=== PATIENT | male | born 1980 | race Caucasian/White ===

== ENCOUNTER 2024-03-11 15:39 | Outpatient (AMB) | payer OTHER, SELFPAY ==
--- NOTE | 2024-03-11 15:41 | A.OFFPC_ITS ---
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 Required: No Allergies ibuprofen Allergy (Severe, Verified 03/11/24 16:16) Abdominal Pain Medication List - Last Reconciled 03/11/24 by Toni Duke MD diazepam 10 mg PO BID PRN duloxetine 20 mg PO DAILY escitalopram oxalate 20 mg PO DAILY methadone 56 mg PO DAILY quetiapine 25 mg PO BEDTIME Tobacco use date assessed: 03/11/24 Dental Screening Dental Screen Date: 03/11/24 Did you have a dental visit in the last 12 months?: No Did you have a dental problem in the last 6 months where you did not have access to dental care?: No Was dental information given to patient?: Yes 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, 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 Details Patient comes in today for his annual physical examination and to establish care - is a new patient to the practice States that he moved here from [place] back in September 2023 Relates that he used to take Lisinopril 10 mg (was on it for about a year) but since he moved here to [facility], his previous doctor in [place] would n ot continue to refill his Rx and he has not been taking Lisinopril for a few months now He is still seeing his psychiatrist from [place] by telehealth visits and is being maintained on his current Rx although he is being weaned down and off his Duloxetine States that he was diagnosed with anxiety disorder, PTSD and depression and he also has a Hx of substance abuse and is currently on Methadone at 56 mg daily dose through the [facility] program in [place] Patient states that he currently feels okay He relates (+) on and off headaches at times lately but denies any dizziness He denies any chest pains, no SOB No nausea/vomiting, no abdominal pain No change in bowel habits noted He denies any acute urinary symptoms States that he will need to start looking for a local psychiatrist who will take over his psych Rx management at some point and he needs to get a referral from his PCP He would also like to get a referral to see a skein straightener if possible to help him with his diet and weight loss States that he had a colonoscopy done about 2 to 3 years ago in [place] - recalls that he was experiencing some GI issues then that were mostly related to his substance abuse Was advised that his colonoscopy came out normal and he should start his screening/repeat colonoscopy as recommended, which now starts at 43 yrs of age based on current guidelines [facility] Medical History (Updated 03/11/24 @ 19:32 by Toni Duke MD) History of substance abuse Essential hypertension Obesity (BMI 30-39.9) Depression Post traumatic stress disorder (PTSD) Anxiety Surgical History (Updated 03/11/24 @ 16:33 by Toni Duke MD) Hx of colonoscopy Family History (Updated 03/11/24 @ 16:38 by Toni Duke MD) Father Diabetes mellitus Hyperlipidemia CAD (coronary artery disease) Mother DVT (deep venous thrombosis) Depression Sister Depression Social History Housing: House Patient Tobacco Use Status: Former Tobacco user Quit Date: 10/17/2023 e-Cigarette/Vaping Use: Never Used service: No Current occupational status: employed and unemployed Cognitive needs: No Hearing needs: No Vision needs: No Questionnaire PHQ-9 Over the last 2 weeks, how often have you been bothered by any of the following problems? 1. Little interest or pleasure in doing things: not at all 2. Feeling down, depressed, or hopeless: more than half the days 3. Trouble falling or staying asleep, or sleeping too much: not at all 4. Feeling tired or having little energy: not at all 5. Poor appetite or overeating: not at all 6. Feeling bad about yourself - or that you are a failure or have let yourself or your family down: several days 7. Trouble concentrating on things, such as reading the newspaper or watching television: not at all 8. Moving or speaking so slowly that other people could have noticed. Or the opposite - being so fidgety or restless that you have been moving around a lot more than usual: not at all 9. Thoughts that you would be better off or of hurting yourself in some way: not at all Total score: 3 Depression Screening Interpretation: Positive Depression Screening Follow-up: Existing condition and In treatment Depression Screening Done: Yes 24919 - PHQ-9 Billing: Yes Source: Developed by Drs. Titi Diaz, Ivonne Ramos, Marlon Turcios and colleagues, with an educational david from [employer] Thrive Questionnaire Date Thrive assessed: 03/11/24 I am a: Patient What is your living situation today?: I have a steady place to live Within the past 12 months, did the food you bought not last and you didn't have the money to get more?: Never true Within the past 12 months, did you worry whether your food would run out before you got money to buy more?: Never true Do you have trouble paying for medicines?: No Do you have trouble getting transportation to medical appointments?: No Do you have trouble paying your heating and electricity bill?: No Do you have trouble taking care of your child, family member or friend?: No Do you have trouble with day-to-day activities such as bathing, preparing meals, shopping, managing finances, etc.?: No Are you currently unemployed and looking for a job?: No Are you interested in more education?: No Please select the resources that you would like help with: None Currently or been in a relationship where the following occur: no concerns reported THRIVE Score: 0 AUDIT C Alcohol Use Questionnaire (AUDIT-C) 1. How often do you have a drink containing alcohol?: Never 2. How many drinks containing alcohol do you have on a typical day when you are drinking?: 1 or 2 (0) 3. How often do you have six or more drinks on one occasion?: Never Total Score: 0 Score Reviewed/Action Taken: Yes PRO-7 AMB Questionnaire PRO-7 Date PRO - 7 assessed: 03/11/24 Feeling nervous, anxious, or on edge: 1 = Several days Not being able to stop or control worryin = Not at all Worrying too much about different things: 0 = Not at all Trouble relaxin = Not at all Being so restless that it is hard to sit still: 0 = Not at all Becoming easily annoyed or irritable: 0 = Not at all Feeling afraid as if something awful might happen: 0 = Not at all Total PRO-7 score (0-4 normal; 5-9 mild; 10-14 moderate; 15-21 severe): 1 Source: Developed by Drs. Titi Diaz, Ivonne Ramos, Marlon Turcios and colleagues, with an educational david from [employer] PRO-7 Assessment Billing PRO-7 Assessment Tool: PRO-7 Assessment 77945 Review of Systems Const Denies chills, Denies fatigue, Denies fever(s), Denies headache(s), Denies malaise and Denies weakness Eyes Denies blurry vision, Denies change in vision, Denies irritation and Denies itchy eyes ENT Denies dysphagia, Denies dizziness, Denies otalgia, Denies headache(s), Denies nasal congestion, Denies neck pain, Denies odynophagia and Denies sore throat Card Denies chest pain, Denies rapid heart rate, Denies irregular heart rhythm, Denies palpitations and Denies dyspnea Resp Denies chest congestion, Denies cough, Denies dyspnea and Denies wheezing GI Denies abdominal pain, Denies bloating, Denies constipation, Denies dysphagia, Denies heartburn, Denies diarrhea, Denies nausea, Denies odynophagia and Denies vomiting Denies hematuria, Denies difficulty urinating, Denies dysuria, Denies urinary frequency and Denies urinary urgency Musc Denies back pain, Denies arthralgias, Denies joint swelling, Denies muscle weakness and Denies neck pain Skin/Breast Denies change in pigmentation, Denies lesions, Denies rash and Denies unusual bruising Neuro Denies dizziness, Denies headache(s), Denies paresthesias and Denies weakness Endo Denies fatigue and Denies palpitations Aller/Immun Denies itchy eyes and Denies wheezing Physical exam (Primary Care) Vital Signs: Last Vital Signs Pulse 91 03/11/24 15:42 BP 172/100 H 03/11/24 16:31 Pulse Ox 94 03/11/24 15:42 Oxygen Delivery Method Room Air 03/11/24 15:42 BMI result Body Mass Index 35.3 Tobacco/Smoking Status: Tobacco use Status Tobacco use date assessed 03/11/24 03/11/24 15:42 Patient Tobacco Use Status Former Tobacco user 03/11/24 15:56 e-Cigarette/Vaping Use Never Used 03/11/24 15:42 PHQ-9: PHQ-9 Score PHQ-9: Total score 3 03/11/24 19:00 Depression Screening Interpretation: Positive Depression Screening Follow-up: Existing condition and In treatment Thrive Assessment: Date of Thrive Assessment Date Thrive assessed 03/11/24 03/11/24 15:42 Currently or been in a relationship where the following occur: no concerns reported Const General: no acute distress, alert and awake Orientation/consciousness: patient oriented x3 HENMT Head: Yes normocephalic and Yes atraumatic Ears: external ears normal, TM's normal bilaterally and EAC's normal General nose exam: No nasal discharge present Face and sinus: Yes normal facial exam and Yes sinuses nontender Teeth and gingiva: dentition normal Throat: Yes posterior oropharynx normal and Yes tonsils normal (no TP congestion) Eyes Eyelids: Yes eyelids normal Conjunctivae: conjunctivae normal Pupils: Equal, round and reactive pupils present EOM: EOMs intact bilaterally Neck Neck: Yes no lymphadenopathy and Yes supple Thyroid: Thyroid normal Resp Auscultation: clear to auscultation bilaterally, no rales and no wheezes Cardio Rate: regular rate Rhythm: regular rhythm Heart sounds: no murmurs GI Palpation (GI): Soft to palpation, nontender and No hepatosplenomegaly present Auscultation: normal bowel sounds General: Yes no CVA tenderness Back/Spine/Pelvis Back: no CVA tenderness Thoracic/Lumbar Spine: thoracic and lumbar spine normal to inspection Skin Lesions: no lesions Rashes: no rashes Neuro General: patient oriented x3, moves all extremities, no focal motor deficits and CN's II-XI intact bilaterally Cranial nerves: Yes Equal, round and reactive pupils present Cognition (Neuro): normal cognition Gait exam (Neuro): Normal gait present Extrem General: Yes no clubbing, cyanosis or edema Assessment and Plan Assessment & Plan (1) Annual physical exam: Code(s): Z00.00 - Encounter for general adult medical examination without abnormal findings Plan: Check labs He will also be referred for his routine screening colonoscopy (2) Essential hypertension: Code(s): I10 - Essential (primary) hypertension Plan: Reinforced low sodium diet - goal is systolic BP of 120 mm or less Will start him back on Lisinopril 10 mg QD Patient is advised to monitor his blood pressure regularly (3) History of substance abuse: Code(s): F19.11 - Other psychoactive substance abuse, in remission Plan: In remission He is currently on Methadone 56 mg QD through [facility] in [place] Follow up with the Methadone clinic as scheduled (4) Post traumatic stress disorder (PTSD): Code(s): F43.10 - Post-traumatic stress disorder, unspecified Plan: Continue Escitalopram 20 mg QD and Duloxetine 20 mg QD although he is reportedly slowly being weaned off his Duloxetine (5) Anxiety: Code(s): F41.9 - Anxiety disorder, unspecified Plan: Continue Diazepam 10 mg BID PRN and Escitalopram 20 mg QD Follow up with psychiatry as scheduled (6) Depression: Code(s): F32.A - Depression, unspecified Qualifiers: Depression Type: major depressive disorder Major depression recurrence: recurrent Active/Remission status: currently active Major depression episode severity: unspecified Qualified Code(s): F33.9 - Major depressive disorder, recurrent, unspecified Plan: Continue Escitalopram 20 mg QD, Quetiapine 25 mg Q HS and Duloxetine 20 mg QD He is currently still following up with his previous psychiatrist from [place] via telehealth visits but will need to start looking to establish with a local psychiatrist soon - referral to psychiatry done (7) Obesity (BMI 30-39.9): Code(s): E66.9 - Obesity, unspecified Plan: Discussed diet/exercise as tolerated/lose weight Per request, will try referring him to a local skein straightener for dietary counseling and teaching (8) Colon cancer screening: Code(s): Z12.11 - Encounter for screening for malignant neoplasm of colon Plan: Will refer him to GI for his screening colonoscopy Plan Follow up in 4 months Orders: Orders Complete Blood Count Auto Diff Today D64.9 - Anemia, unspecified, Z00.00 - Encounter for general adult medical examination without abnormal findings Lipid Panel Today E78.00 - Pure hypercholesterolemia, unspecified, Z00.00 - Encounter for general adult medical examination without abnormal findings TSH reflex Free T4 Today E78.00 - Pure hypercholesterolemia, unspecified, Z00.00 - Encounter for general adult medical examination without abnormal findings UA CC w/rflx Micro + Cult Today R30.0 - Dysuria, Z00.00 - Encounter for general adult medical examination without abnormal findings Prostate Specific Antigen Scr Today Z00.00 - Encounter for general adult medical examination without abnormal findings Comprehensive [place]. Panel Fast Today E78.00 - Pure hypercholesterolemia, unspecified, Z00.00 - Encounter for general adult medical examination without abnormal findings Vitamin D 25-OH Total Today E55.9 - Vitamin D deficiency, unspecified, Z00.00 - Encounter for general adult medical examination without abnormal findings Referrals Psychiatry Referral F32.A - Depression, unspecified, F41.9 - Anxiety disorder, unspecified, F43.10 - Post-traumatic stress disorder, unspecified Flush Tester Nutrition Referral E66.9 - Obesity, unspecified Gastroenterology Referral Z12.11 - Encounter for screening for malignant neoplasm of colon Medications: New lisinopril 10 mg PO DAILY 90 tabs 1RF 90 days I10 - Essential (primary) hypertension Coding Level of Care Code New Pt Prev Care 40-64y(43578) Diagnoses Annual physical exam Z00.00 Essential hypertension I10 History of substance abuse F19.11 Post traumatic stress disorder (PTSD) F43.10 Anxiety F41.9 Episode of recurrent major depressive disorder, unspecified depression episode severity F33.9 Depression Type: major depressive disorder Major depression recurrence: recurrent Active/Remission status: currently active Major depression episode severity: unspecified Obesity (BMI 30-39.9) E66.9 Colon cancer screening Z12.11 Additional Codes PRO-7 Assessment Billing - PRO-7 Assessment Tool: PRO-7 Assessment [id number] ([id number])
[2024-03-11 15:42] VITALS: BP 144/90; PULSE 91; O2SAT 94; BMI 35.3
[2024-03-11 16:31] VITALS: BP 172/100
== END 2024-03-11 16:41 | disposition home or self-care (01) ==
LOC: HO.HMGH 15:41
PROVIDERS: PCP Internal Medicine; Visit Provider Internal Medicine
DX: Z00.00 Encounter for general adult medical examination without abnormal findings (principal); F19.11 Other psychoactive substance abuse, in remission; F33.9 Major depressive disorder, recurrent, unspecified; I10 Essential (primary) hypertension; F43.10 Post-traumatic stress disorder, unspecified; F41.9 Anxiety disorder, unspecified; E66.9 Obesity, unspecified; Z12.11 Encounter for screening for malignant neoplasm of colon
CPT/HCPCS: 99386

== ENCOUNTER 2024-07-03 10:21 | Outpatient (REF) | payer OTHER, SELFPAY ==
[2024-07-03 10:40] LABS: MANUAL DIFF FLAG NO
[2024-07-03 11:23] LABS: Appearance Urine Clear; Color Urine Yellow; Glucose Urine UA Negative (Negative); Leukocyte Esterase Urine Negative (Negative); Nitrite Urine Negative (Negative); Specific Gravity - Urine 1.025 (1.005-1.025); Urine Blood Negative (Negative); Urine Ketones Negative (Negative); Urine Protein Negative (Neg-Trace)
[2024-07-03 11:34] LABS: Basophils Percent Auto 0.6 % (0-2); Eosinophils Absolute Auto 0.1 X10*3/uL (0.0-0.4); Eosinophils Percent Auto 1.7 % (0-4); Hematocrit 45.4 % (42.0-52.0); Hemoglobin 15.6 g/dl (14.0-18.0); Imm Gran Abs Auto 0.02 X10*3/uL (0.00-0.03); Imm Gran Pct Auto 0.4 % (0.0-0.4); Lymphocytes Absolute Auto 1.7 X10*3/uL (1.2-4.9); Lymphocytes Percent Auto 32.1 % (20-40); Mean Corpuscular HGB Conc 34.4 g/dl (31.0-36.0); Mean Corpuscular Hemoglobin 31.3 pg (27.0-33.0); Monocytes Absolute Auto 0.5 X10*3/uL (0.1-1.2); Monocytes Percent Auto 9.4 % (2-11); Neutrophils Percent Auto 55.8 % (45-73); Platelet Count 242 X10*3/uL (160-400); Red Blood Count 4.99 X10*6/uL (4.60-5.80); Red Cell Distribution Width 11.9 % (11.0-16.0); White Blood Count 5.3 X10*3/uL (4.8-10.8)
[2024-07-03 11:46] LABS: Alanine Aminotransferase 42 U/L (0-40); Albumin Level 4.4 g/dL (3.5-5.0); Alkaline Phosphatase 173 U/L (39-117); Anion Gap 15 (12-20); Aspartate Amino Transferase 26 U/L (5-37); Bilirubin Total 0.7 mg/dL (0.0-1.0); Blood Urea Nitrogen 15 mg/dL (9-16); Calcium 9.6 mg/dL (8.4-10.2); Carbon Dioxide 29 mmol/L (22-29); Chloride 100 mmol/L (96-108); Cholesterol 208 mg/dL (<200); Estimated Glomerular Filt Rate > 60; Glucose Fasting 157 mg/dL (60-99); HDL Cholesterol 42 mg/dL (>40); LDL Cholesterol Calculated 110 mg/dL (<100); Potassium 4.3 mmol/L (3.3-5.1); Sodium 140 mmol/L (135-145); Total Protein 7.5 g/dL (6.5-8.0); Triglycerides 283 mg/dL (<150)
[2024-07-03 11:53] LABS: Prostate Specific Antigen Scr 0.31 ng/mL (<0.05-4.0)
[2024-07-03 12:04] LABS: TSH reflex Free T4 0.73 uIU/mL (0.32-4.0); Vitamin D 25-OH Total 35.8 ng/mL (>30)
== END 2024-07-03 10:22 | disposition home or self-care (01) ==
LOC: HO.LAB 10:21
PROVIDERS: PCP Internal Medicine; Visit Provider Internal Medicine
DX: Z00.00 Encounter for general adult medical examination without abnormal findings (principal); D64.9 Anemia, unspecified; R30.0 Dysuria; E55.9 Vitamin D deficiency, unspecified; E78.00 Pure hypercholesterolemia, unspecified
CPT/HCPCS: 36415; 80053; 80061; 81003; 82306; 84153; 84443; 85025

== ENCOUNTER 2024-07-13 15:45 | Outpatient (AMB) | payer OTHER, SELFPAY ==
--- NOTE | 2024-07-13 16:01 | MHC.PC.OV ---
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 Accompanied by: Self / Same As Patient Allergies ibuprofen Allergy (Severe, Verified 07/13/24 16:25) Abdominal Pain Medication List - Last Reconciled 07/13/24 by Toni Duke MD diazepam 10 mg PO BID PRN escitalopram oxalate 20 mg PO DAILY hydroxyzine HCl 20 mg PO BID lisinopril 10 mg PO DAILY 90 days methadone 54 mg PO DAILY Tobacco use date assessed: 07/13/24 Dental Screening Dental Screen Date: 07/13/24 Did you have a dental visit in the last 12 months?: No Did you have a dental problem in the last 6 months where you did not have access to dental care?: No Was dental information given to patient?: No HPI follow up visit HPI Details Patient comes in today for his follow up visit States that he feels okay He denies any headaches or dizziness Denies any chest pains, no SOB No nausea/vomiting, no abdominal pain No change in bowel habits noted He had his follow up labs done a couple of weeks ago - to discuss his results [facility], [facility] Medical History (Updated 07/20/24 @ 01:31 by Toni Duke MD) Mixed hyperlipidemia History of substance abuse Essential hypertension Obesity (BMI 30-39.9) Depression Post traumatic stress disorder (PTSD) Anxiety Surgical History Hx of colonoscopy Family History Father Diabetes mellitus Hyperlipidemia CAD (coronary artery disease) Mother DVT (deep venous thrombosis) Depression Sister Depression Social History Housing: House Patient Tobacco Use Status: Former Tobacco user e-Cigarette/Vaping Use: Never Used service: No Current occupational status: employed and unemployed Cognitive needs: No Hearing needs: No Vision needs: No Questionnaire PHQ-9 Over the last 2 weeks, how often have you been bothered by any of the following problems? 1. Little interest or pleasure in doing things: not at all 2. Feeling down, depressed, or hopeless: more than half the days 3. Trouble falling or staying asleep, or sleeping too much: not at all 4. Feeling tired or having little energy: not at all 5. Poor appetite or overeating: not at all 6. Feeling bad about yourself - or that you are a failure or have let yourself or your family down: several days 7. Trouble concentrating on things, such as reading the newspaper or watching television: not at all 8. Moving or speaking so slowly that other people could have noticed. Or the opposite - being so fidgety or restless that you have been moving around a lot more than usual: not at all 9. Thoughts that you would be better off or of hurting yourself in some way: not at all Total score: 3 Depression Screening Interpretation: Positive Depression Screening Follow-up: Existing condition and In treatment Depression Screening Done: Yes 83364 - PHQ-9 Billing: Yes Source: Developed by Drs. Titi Diaz, Ivonne Ramos, Marlon Turcios and colleagues, with an educational david from [employer]. Thrive Questionnaire Date Thrive assessed: 07/13/24 I am a: Patient What is your living situation today?: I have a steady place to live Within the past 12 months, did the food you bought not last and you didn't have the money to get more?: Never true Within the past 12 months, did you worry whether your food would run out before you got money to buy more?: Never true Do you have trouble paying for medicines?: No Do you have trouble getting transportation to medical appointments?: No Do you have trouble paying your heating and electricity bill?: No Do you have trouble taking care of your child, family member or friend?: No Do you have trouble with day-to-day activities such as bathing, preparing meals, shopping, managing finances, etc.?: No Are you currently unemployed and looking for a job?: No Are you interested in more education?: No Please select the resources that you would like help with: None Currently or been in a relationship where the following occur: No concerns reported THRIVE Score: 0 AUDIT C Alcohol Use Questionnaire (AUDIT-C) 1. How often do you have a drink containing alcohol?: Never 2. How many drinks containing alcohol do you have on a typical day when you are drinking?: 1 or 2 (0) 3. How often do you have six or more drinks on one occasion?: Never Total Score: 0 Score Reviewed/Action Taken: Yes PRO-7 AMB Questionnaire PRO-7 Date PRO - 7 assessed: 07/13/24 Feeling nervous, anxious, or on edge: 1 = Several days Not being able to stop or control worryin = Not at all Worrying too much about different things: 0 = Not at all Trouble relaxin = Not at all Being so restless that it is hard to sit still: 0 = Not at all Becoming easily annoyed or irritable: 0 = Not at all Feeling afraid as if something awful might happen: 0 = Not at all Total PRO-7 score (0-4 normal; 5-9 mild; 10-14 moderate; 15-21 severe): 1 Source: Developed by Drs. Titi Diaz, Ivonne Ramos, Marlon Turcios and colleagues, with an educational david from [employer]. PRO-7 Assessment Billing PRO-7 Assessment Tool: PRO-7 Assessment [id number] Review of Systems Const Denies chills, Denies fatigue, Denies fever(s) and Denies headache(s) ENT Denies dysphagia, Denies dizziness, Denies otalgia, Denies headache(s), Denies neck pain, Denies odynophagia and Denies sore throat Card Denies chest pain, Denies irregular heart rhythm, Denies palpitations and Denies dyspnea Resp Denies chest congestion, Denies cough and Denies dyspnea GI Denies abdominal pain, Denies constipation, Denies dysphagia, Denies heartburn, Denies diarrhea, Denies nausea, Denies odynophagia and Denies vomiting Denies hematuria, Denies dysuria and Denies urinary frequency Musc Denies back pain, Denies arthralgias and Denies neck pain Skin/Breast Denies rash Neuro Denies dizziness, Denies headache(s) and Denies paresthesias Endo Denies fatigue and Denies palpitations Physical exam (Primary Care) Vital Signs: Last Vital Signs Pulse 83 07/13/24 16:02 BP 122/80 07/13/24 16:02 Pulse Ox 93 07/13/24 16:02 Oxygen Delivery Method Room Air 07/13/24 16:02 BMI result Body Mass Index 35.0 Tobacco/Smoking Status: Tobacco use Status Tobacco use date assessed 07/13/24 07/13/24 16:07 Patient Tobacco Use Status Former Tobacco user 07/13/24 16:02 e-Cigarette/Vaping Use Never Used 07/13/24 16:02 PHQ-9: PHQ-9 Score PHQ-9: Total score 3 07/13/24 16:33 Depression Screening Interpretation: Positive Depression Screening Follow-up: Existing condition and In treatment Thrive Assessment: Date of Thrive Assessment Date Thrive assessed 07/13/24 07/13/24 16:07 Currently or been in a relationship where the following occur: No concerns reported Const General: no acute distress and alert HENMT Ears: TM's normal bilaterally and EAC's normal Throat: Yes posterior oropharynx normal and Yes tonsils normal (no TP congestion) Neck Neck: Yes no lymphadenopathy and Yes supple Thyroid: Thyroid normal Resp Auscultation: clear to auscultation bilaterally, no rales and no wheezes Cardio Rate: regular rate Rhythm: regular rhythm Heart sounds: no murmurs GI Palpation (GI): Soft to palpation and nontender Auscultation: normal bowel sounds General: Yes no CVA tenderness Back/Spine/Pelvis Back: no CVA tenderness Thoracic/Lumbar Spine: No lumbar spinal tenderness Skin Rashes: no rashes Extrem General: Yes no clubbing, cyanosis or edema Results Reviewed Results Reviewed: Laboratory Tests 07/03/24 07/03/24 10:38 10:40 WBC 5.3 Hgb 15.6 Hct 45.4 Plt Count 242 Sodium 140 Potassium 4.3 Creatinine 0.99 Estimated GFR > 60 Fasting Glucose 157 H Calcium 9.6 AST 26 ALT 42 H Triglycerides 283 H Cholesterol 208 H LDL Cholesterol, Calc 110 H HDL Cholesterol 42 PSA Screen 0.31 25-OH Vitamin D Total 35.8 TSH 0.73 Ur Specific [place] 1.025 Urine Protein Negative Urine Glucose (UA) Negative Urine Blood Negative Urine Nitrite Negative Ur Leukocyte Esterase Negative Assessment and Plan Assessment & Plan (1) Essential hypertension: Code(s): I10 - Essential (primary) hypertension Plan: Reinforced low sodium diet - goal is systolic BP of 120 mm or less Will start him back on Lisinopril 10 mg QD Patient is reminded to continue monitoring his blood pressure regularly (2) Mixed hyperlipidemia: Code(s): E78.2 - Mixed hyperlipidemia Plan: Results of his labs done a couple of weeks ago reviewed and discussed with patient - he is advised that his serum TG level is elevated but his LDL cholesterol is within acceptable range Reinforced low cholesterol diet Will recheck his labs and fasting lipids in 4 months for follow up (3) Impaired fasting glucose: Code(s): R73.01 - Impaired fasting glucose Plan: Patient is advised that his FBS was elevated on his recent labs Reinforced low calorie/low carb diet Will recheck his FBS and also check his HgbA1c in 4 months for further evaluation (4) History of substance abuse: Code(s): F19.11 - Other psychoactive substance abuse, in remission Plan: In remission He is currently on Methadone 56 mg QD through [facility] in [place] Follow up with the Methadone clinic as scheduled (5) Post traumatic stress disorder (PTSD): Code(s): F43.10 - Post-traumatic stress disorder, unspecified Plan: Continue Escitalopram 20 mg QD and Duloxetine 20 mg QD although he is reportedly slowly being weaned off his Duloxetine (6) Anxiety: Code(s): F41.9 - Anxiety disorder, unspecified Plan: Continue Diazepam 10 mg BID PRN and Escitalopram 20 mg QD Follow up with psychiatry as scheduled (7) Depression: Code(s): F32.A - Depression, unspecified Qualifiers: Depression Type: major depressive disorder Major depression recurrence: recurrent Active/Remission status: currently active Major depression episode severity: unspecified Qualified Code(s): F33.9 - Major depressive disorder, recurrent, unspecified Plan: Continue Escitalopram 20 mg QD, Quetiapine 25 mg Q HS and Duloxetine 20 mg QD He is currently still following up with his previous psychiatrist from [place] via telehealth visits but will need to start looking to establish with a local psychiatrist soon - referral to psychiatry done (8) Obesity (BMI 30-39.9): Code(s): E66.9 - Obesity, unspecified Plan: Reinforced diet/exercise as tolerated/lose weight Plan Follow up in 4 months Orders: Orders Comprehensive [place]. Panel Fast 4 Months E78.00 - Pure hypercholesterolemia, unspecified Lipid Panel 4 Months E78.00 - Pure hypercholesterolemia, unspecified Hemoglobin A1c 4 Months R73.01 - Impaired fasting glucose Coding Level of Care Code Est Pt Level 4 (35198) Diagnoses Essential hypertension I10 Mixed hyperlipidemia E78.2 Impaired fasting glucose R73.01 History of substance abuse F19.11 Post traumatic stress disorder (PTSD) F43.10 Anxiety F41.9 Episode of recurrent major depressive disorder, unspecified depression episode severity F33.9 Depression Type: major depressive disorder Major depression recurrence: recurrent Active/Remission status: currently active Major depression episode severity: unspecified Obesity (BMI 30-39.9) E66.9 Additional Codes PRO-7 Assessment Billing - PRO-7 Assessment Tool: PRO-7 Assessment [id number] ([id number])
[2024-07-13 16:02] VITALS: BP 122/80; PULSE 83; O2SAT 93; BMI 35.0
== END 2024-07-13 16:39 | disposition home or self-care (01) ==
PROVIDERS: PCP Internal Medicine; Visit Provider Internal Medicine
DX: I10 Essential (primary) hypertension (principal); F19.11 Other psychoactive substance abuse, in remission; F33.9 Major depressive disorder, recurrent, unspecified; E78.2 Mixed hyperlipidemia; R73.01 Impaired fasting glucose; F43.10 Post-traumatic stress disorder, unspecified; F41.9 Anxiety disorder, unspecified; E66.9 Obesity, unspecified

== ENCOUNTER → 2024-07-13 15:45 | Outpatient (BNVA) | payer OTHER, SELFPAY | PROVIDERS: PCP Internal Medicine; Visit Provider Internal Medicine | DX: I10 Essential (primary) hypertension (principal); E78.2 Mixed hyperlipidemia; R73.01 Impaired fasting glucose; F19.11 Other psychoactive substance abuse, in remission; F43.10 Post-traumatic stress disorder, unspecified; F41.9 Anxiety disorder, unspecified; F33.9 Major depressive disorder, recurrent, unspecified; E66.9 Obesity, unspecified | CPT/HCPCS: 96127; 99212 ==

== ENCOUNTER 2024-11-16 15:44 | Outpatient (AMB) | payer OTHER, SELFPAY ==
[2024-11-16 16:06] VITALS: BP 122/84; PULSE 85; O2SAT 97; BMI 33.2
--- NOTE | 2024-11-16 16:06 | MHC.PC.OV ---
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 Required: No Accompanied by: Self / Same As Patient Allergies ibuprofen Allergy (Severe, Verified 11/16/24 16:50) Abdominal Pain Medication List - Last Reconciled 11/16/24 by Toni Duke MD diazepam 10 mg PO BID PRN escitalopram oxalate 20 mg PO DAILY hydroxyzine HCl 20 mg PO BID lisinopril 10 mg PO DAILY 90 days methadone 54 mg PO DAILY Tobacco use date assessed: 11/16/24 Dental Screening Dental Screen Date: 11/16/24 Did you have a dental visit in the last 12 months?: Yes Did you have a dental problem in the last 6 months where you did not have access to dental care?: No Was dental information given to patient?: Patient has dentist HPI hyperlipidemia, IFG HPI Details Patient comes in today for his follow up visit States that he feels okay He denies any headaches or dizziness Denies any chest pains, no SOB No nausea/vomiting, no abdominal pain No change in bowel habits noted He was not able to get his follow up labs done prior to his appointment today [facility] Medical History Mixed hyperlipidemia History of substance abuse Essential hypertension Obesity (BMI 30-39.9) Depression Post traumatic stress disorder (PTSD) Anxiety Surgical History Hx of colonoscopy Family History Father Diabetes mellitus Hyperlipidemia CAD (coronary artery disease) Mother DVT (deep venous thrombosis) Depression Sister Depression Social History Housing: House Patient Tobacco Use Status: Former Tobacco user e-Cigarette/Vaping Use: Never Used service: No Current occupational status: employed and unemployed Cognitive needs: No Hearing needs: No Vision needs: No Questionnaire PHQ-9 Over the last 2 weeks, how often have you been bothered by any of the following problems? 1. Little interest or pleasure in doing things: not at all 2. Feeling down, depressed, or hopeless: more than half the days 3. Trouble falling or staying asleep, or sleeping too much: not at all 4. Feeling tired or having little energy: not at all 5. Poor appetite or overeating: not at all 6. Feeling bad about yourself - or that you are a failure or have let yourself or your family down: several days 7. Trouble concentrating on things, such as reading the newspaper or watching television: not at all 8. Moving or speaking so slowly that other people could have noticed. Or the opposite - being so fidgety or restless that you have been moving around a lot more than usual: not at all 9. Thoughts that you would be better off or of hurting yourself in some way: not at all Total score: 3 Depression Screening Interpretation: Positive Depression Screening Follow-up: Existing condition and In treatment Depression Screening Done: Yes 81167 - PHQ-9 Billing: Yes Source: Developed by Drs. Titi Diaz, Ivonne Ramos, Marlon Turcios and colleagues, with an educational david from [employer]. Thrive Questionnaire Date Thrive assessed: 11/16/24 I am a: Patient What is your living situation today?: I have a steady place to live Within the past 12 months, did the food you bought not last and you didn't have the money to get more?: Never true Within the past 12 months, did you worry whether your food would run out before you got money to buy more?: Never true Do you have trouble paying for medicines?: No Do you have trouble getting transportation to medical appointments?: No Do you have trouble paying your heating and electricity bill?: No Do you have trouble taking care of your child, family member or friend?: No Do you have trouble with day-to-day activities such as bathing, preparing meals, shopping, managing finances, etc.?: No Are you currently unemployed and looking for a job?: No Are you interested in more education?: No Please select the resources that you would like help with: None Currently or been in a relationship where the following occur: No concerns reported THRIVE Score: 0 AUDIT C Alcohol Use Questionnaire (AUDIT-C) 1. How often do you have a drink containing alcohol?: Never 2. How many drinks containing alcohol do you have on a typical day when you are drinking?: 1 or 2 (0) 3. How often do you have six or more drinks on one occasion?: Never Total Score: 0 Score Reviewed/Action Taken: Yes PRO-7 AMB Questionnaire PRO-7 Date PRO - 7 assessed: 11/16/24 Feeling nervous, anxious, or on edge: 1 = Several days Not being able to stop or control worryin = Not at all Worrying too much about different things: 0 = Not at all Trouble relaxin = Not at all Being so restless that it is hard to sit still: 0 = Not at all Becoming easily annoyed or irritable: 0 = Not at all Feeling afraid as if something awful might happen: 0 = Not at all Total PRO-7 score (0-4 normal; 5-9 mild; 10-14 moderate; 15-21 severe): 1 Source: Developed by Drs. Titi Diaz, Ivonne Ramos, Marlon Turcios and colleagues, with an educational david from [employer]. PRO-7 Assessment Billing PRO-7 Assessment Tool: PRO-7 Assessment 08957 Review of Systems Const Denies chills, Denies fatigue, Denies fever(s) and Denies headache(s) ENT Denies dysphagia, Denies dizziness, Denies otalgia, Denies headache(s), Denies neck pain, Denies odynophagia and Denies sore throat Card Denies chest pain, Denies irregular heart rhythm, Denies palpitations and Denies dyspnea Resp Denies chest congestion, Denies cough and Denies dyspnea GI Denies abdominal pain, Denies constipation, Denies dysphagia, Denies heartburn, Denies diarrhea, Denies nausea, Denies odynophagia and Denies vomiting Denies hematuria, Denies dysuria and Denies urinary frequency Musc Denies back pain, Denies arthralgias and Denies neck pain Skin/Breast Denies rash Neuro Denies dizziness, Denies headache(s) and Denies paresthesias Endo Denies fatigue and Denies palpitations Physical exam (Primary Care) Vital Signs: Last Vital Signs Pulse 85 11/16/24 16:06 BP 122/84 11/16/24 16:06 Pulse Ox 97 11/16/24 16:06 Oxygen Delivery Method Room Air 11/16/24 16:06 BMI result Body Mass Index 33.2 Tobacco/Smoking Status: Tobacco use Status Tobacco use date assessed 11/16/24 11/16/24 16:10 Patient Tobacco Use Status Former Tobacco user 11/16/24 16:10 e-Cigarette/Vaping Use Never Used 11/16/24 16:10 PHQ-9: PHQ-9 Score PHQ-9: Total score 3 11/16/24 17:08 Depression Screening Interpretation: Positive Depression Screening Follow-up: Existing condition and In treatment Thrive Assessment: Date of Thrive Assessment Date Thrive assessed 11/16/24 11/16/24 16:10 Currently or been in a relationship where the following occur: No concerns reported Const General: no acute distress and alert HENMT Ears: TM's normal bilaterally and EAC's normal Throat: Yes posterior oropharynx normal and Yes tonsils normal (no TP congestion) Neck Neck: Yes no lymphadenopathy and Yes supple Thyroid: Thyroid normal Resp Auscultation: clear to auscultation bilaterally, no rales and no wheezes Cardio Rate: regular rate Rhythm: regular rhythm Heart sounds: no murmurs GI Palpation (GI): Soft to palpation and nontender Auscultation: normal bowel sounds General: Yes no CVA tenderness Back/Spine/Pelvis Back: no CVA tenderness Thoracic/Lumbar Spine: No lumbar spinal tenderness Skin Rashes: no rashes Extrem General: Yes no clubbing, cyanosis or edema Coding Level of Care Code Est Pt Level 4 (51933) Diagnoses Essential hypertension I10 Mixed hyperlipidemia E78.2 Impaired fasting glucose R73.01 History of substance abuse F19.11 Post traumatic stress disorder (PTSD) F43.10 Anxiety F41.9 Episode of recurrent major depressive disorder, unspecified depression episode severity F33.9 Depression Type: major depressive disorder Major depression recurrence: recurrent Active/Remission status: currently active Major depression episode severity: unspecified Obesity (BMI 30-39.9) E66.9 Additional Codes PRO-7 Assessment Billing - PRO-7 Assessment Tool: PRO-7 Assessment 22910 ([id number]) PHQ-9 - 13406 - PHQ-9 Billing: Yes ([id number]) Assessment & Plan Assessment & Plan (1) Essential hypertension: Code(s): I10 - Essential (primary) hypertension Category: Medical Plan: Reinforced low sodium diet - goal is systolic BP of 120 mm or less Will start him back on Lisinopril 10 mg QD Patient is reminded to continue monitoring his blood pressure regularly (2) Mixed hyperlipidemia: Code(s): E78.2 - Mixed hyperlipidemia Category: Medical Plan: Patient was not able to get his follow-up labs done prior to his appointment today - have instructed him to try and get these done [facility] Reinforced low cholesterol diet Will recheck his labs and fasting lipids in 4 months for follow up (3) Impaired fasting glucose: Code(s): R73.01 - Impaired fasting glucose Category: Medical Plan: His FBS was elevated on his recent labs Reinforced low calorie/low carb diet Will recheck his FBS and also check his HgbA1c in 4 months for further evaluation (4) History of substance abuse: Code(s): F19.11 - Other psychoactive substance abuse, in remission Category: Medical Plan: In remission He is currently on Methadone 56 mg QD through [facility] in [place] Follow up with the Methadone clinic as scheduled (5) Post traumatic stress disorder (PTSD): Code(s): F43.10 - Post-traumatic stress disorder, unspecified Category: Medical Plan: Continue Escitalopram 20 mg QD and Duloxetine 20 mg QD although he is reportedly slowly being weaned off his Duloxetine (6) Anxiety: Code(s): F41.9 - Anxiety disorder, unspecified Category: Medical Plan: Continue Diazepam 10 mg BID PRN and Escitalopram 20 mg QD Follow up with psychiatry as scheduled (7) Depression: Code(s): F32.A - Depression, unspecified Category: Medical Qualifiers: Depression Type: major depressive disorder Major depression recurrence: recurrent Active/Remission status: currently active Major depression episode severity: unspecified Qualified Code(s): F33.9 - Major depressive disorder, recurrent, unspecified Plan: Continue Escitalopram 20 mg QD, Quetiapine 25 mg Q HS and Duloxetine 20 mg QD He is currently still following up with his previous psychiatrist from [place] via telehealth visits but will need to start looking to establish with a local psychiatrist soon - referral to psychiatry was previously placed for him (8) Obesity (BMI 30-39.9): Code(s): E66.9 - Obesity, unspecified Category: Medical Plan: Reinforced diet/exercise as tolerated/lose weight Plan To return in 4 months for his next annual physical examination Orders: Orders Complete Blood Count Auto Diff 03/13/25 D64.9 - Anemia, unspecified, Z00.00 - Encounter for general adult medical examination without abnormal findings Lipid Panel 03/13/25 E78.00 - Pure hypercholesterolemia, unspecified, Z00. - Encounter for general adult medical examination without abnormal findings Hemoglobin A1c 03/13/25 R73.01 - Impaired fasting glucose Comprehensive [place]. Panel Fast 03/13/25 E78.00 - Pure hypercholesterolemia, unspecified, Z00.00 - Encounter for general adult medical examination without abnormal findings TSH reflex Free T4 03/13/25 E78.00 - Pure hypercholesterolemia, unspecified, Z00.00 - Encounter for general adult medical examination without abnormal findings UA CC w/rflx Micro + Cult 03/13/25 R30.0 - Dysuria, Z00.00 - Encounter for general adult medical examination without abnormal findings Vitamin D 25-OH Total 03/13/25 E55.9 - Vitamin D deficiency, unspecified, Z00.00 - Encounter for general adult medical examination without abnormal findings
--- OUTSIDE RECORDS SUMMARY | 2024-11-16 19:38 | XMS_ITS | Clinical Summary ---
Author Organization [facility] Address [address] [place] [address] Care Team Providers Care Math Interventionist Name Role Phone Unavailable Primary Care Provider Unavailabl e Source Comments PLEASE NOTE, if this patient is a minor, it may be UNLAWFUL to discuss sensitive information that is contained in these records (such as FAMILY PLANNING, MENTAL HEALTH or SUBSTANCE ABUSE) with the minor patient's parent or other person without the patient's specific authorization.[facility] Allergies Active Allergy Reactions Criticality Noted Date Comments Ibuprofen Nsaids (Non-Steroidal Anti-Inflammatory Drug) Nausea and Vomiting 05/31/2017 Medications diazePAM (VALIUM) 10 mg tabletIndications :Back spasm,Lumbar disc herniation TAKE 1 TABLET BY MOUTH TWO TIMES A DAY NEEDED FOR ANXIETY 60 Tab 1 8 Active methadone (DOLOPHINE) 10 mg/mL concentrated solution Take 80 mg by mouth once daily Active DULoxetine (CYMBALTA) [address] capsuleIndication s:Anxiety Take 1 Cap by mouth once daily 30 Cap 3 9 Active baclofen (LIORESAL) 10 mg tabletIndications :Back spasm Take 1 tablet by mouth 3 (three) times daily as needed for muscle spasms 90 Tab 3 0 Active albuterol sulfate 90 mcg/actuation inhalerIndication s:Cough variant asthma Inhale 2 Puffs into the lungs every 4 (four) hours as needed for shortness of breath or wheezing 1 Each 1 Active inhalational spacing deviceIndications :Cough variant asthma To be used with albuterol as prescribed 1 Each 1 Active fluticasone propionate (FLONASE) 50 mcg/actuation nasal sprayIndications: Allergic rhinitis, unspecified seasonality, unspecified trigger Place 2 Sprays in both nostrils once daily 16 g 1 1 Active lisinopriL 20 mg tabletIndications :Essential hypertension TAKE 1 TABLET BY MOUTH EVERY DAY 30 Tablet 5 3 Active Active Problems Problem Noted Date Diagnosed Date Sprain of left foot 12/15/2019 Ganglion cyst of left foot 12/15/2019 Acute left ankle pain 06/10/2019 Assessment & Plan (06/11/2019 6:37 PM PDT): Left ankle sprain vs. Possible fracture. Will obtain XR, refer to podiatry. Advised weight-bearing as tolerated. ROM exercises given. Continue topical NSAIDs since unable to tolerate oral NSAIDs, elevation of extremity, and topical ice. ERIKA (obstructive sleep apnea) 06/10/2019 Assessment & Plan (06/11/2019 6:35 PM PDT): Symptoms concerning for underlying sleep apnea, will refer for sleep study. Hyperlipidemia 06/10/2019 Assessment & Plan (06/11/2019 6:36 PM PDT): Discussed dietary changes to reduce cholesterol. The 10-year ASCVD risk score (Ricarda DC Jr., et al., 2013) is: 5.8% Prediabetes 06/10/2019 Overview (01/13/2020): Reported excessive flatulence with metformin. Assessment & Plan (01/13/2020 3:04 PM PDT): Improving overall, d/c metformin due to side effects of excessive flatulence. Improving with diet and exercise. Advised to continue regiment which is improving his labs and reducing risk of progression to DM2. Assessment & Plan (06/11/2019 6:35 PM PDT): Discussed benefits of diet and exercise to reduce progression to DM. 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 Anxiety 08/15/2018 Hypertension 08/15/2018 Acute recurrent pansinusitis 08/15/2018 Opioid dependence with opioid-induced disorder ( [facility]) 08/15/2018 Allergic rhinitis 08/15/2018 Lumbar disc herniation with radiculopathy 2017 Back spasm 08/15/2018 Segmental dysfunction of thoracic region 017 Overview (04/25/2017): [id number] Chronic constipation 12/25/2016 Overview (04/25/2017): [id number] Resolved Problems Problem Noted Date Diagnosed Date Resolved Date Acute pain of left shoulder 02/08/2017 01/04/2018 Overview (04/25/2017): [id number] Segmental dysfunction of lumbar region 02/08/2017 12/04/2018 Overview (04/25/2017): [id number] Cervicalgia 02/02/2017 01/04/2018 Overview (04/25/2017): [id number] Pain, arm, right 02/02/2017 01/04/2018 Overview (04/25/2017): [id number] Sunburn due to tanning bed 01/07/2017 0 01/04/2018 Overview (04/25/2017): [id number] Immunizations Name Administration Dates Next Due INFLUENZA, SEASONAL, INJECTABLE 06/21/2014 INFLUENZA, UNSPECIFIED 06/21/2014 Moderna COVID-19 Vaccine, re d cap blue label, 12+ Primary Series 02/17/2021,01/23/2021 TDAP 07/25/2016 Family History Medical History Relation Name Comments Heart Problems Father Hypertension Father Heart Problems Mother Relation Name Status Comments Father Alive Mother Alive Sister Alive Social History Tobacco Use Types Packs/Day Years Used Date Smoking Tobacco: Light Smoker Cigarettes Smokeless Tobacco: Current Tobacco Cessation:Ready to Q uit: No; Counseling Given: Yes Comments:2 cigs per day at this time Alcohol Use Standard Drinks/Week Comments No 0 (1 standard drink = 0.6 oz pur e alcohol) Social Connections Answer Date Recorded Connectedness 0 2024 Financial Resource Strain Answer Date R ecorded Financial Resource Strain 0 2018 Stress Answer Date Recorded Stress 0 06/10/2019 Physical Activity Answer Date Recorded Physical Activity 0 06/10/2019 Food Insecurity Answer Date Recorded Food 0 07/16/2024 Transportation Needs Answer Date Record ed Transportation 0 06/10/2019 Housing Stability Answer Date Recorded Housing 0 06/10/2019 Safety and Environment Answer Date Antonio rded Safety 0 06/10/2019 Utilities Answer Date Recorded Utilities 0 06/10/2019 Employment Answer Date Recorded Stress 0 2024 Sex and Gender Information Value Date Recorded Sex Assigned at Male 05/10/2017 10:35 AM PDT Legal Sex Male 10:45 AM PST Gender Identity Male 05/10/2017 10:35 AM PDT Sexual Orientation Straight 04/15/2018 1: 27 PM PDT Last Filed Vital Signs Vital Sign Reading Time Taken Comments Blood Pressure 110/77 06/23/2021 10:53 AM PDT Pulse 91 06/23/2021 10:53 AM PDT Temperature 36.9 ??C (98.4 ??F) 06/23/2021 10:53 AM P DT Respiratory Rate 18 06/23/2021 10:53 AM PDT Oxygen Saturation 98% 06/23/2021 10:53 AM PDT Inhaled Oxygen Concentration - - Weight 115.2 kg (254 lb) 12/15/2019 1:11 PM PST Height 180.3 cm (5' 11 ) 12/09/2019 2:46 PM PST Body Mass Index 35.43 12/09/2019 2:46 PM PST Plan of Treatment Health Maintenance Due Date Last Done Comments Hepatitis C Screening 1978 Tobacco Screening 1978 HIV Screening 1993 Annual Preventive Care Visit 1996 Imm-Hepatitis B (1 of 3 - 19 + 3-dose series) 1997 Imm-Pneumococcal (1 of 2 - PCV) 1997 Tobacco Cessation Counseling (#1) 08/31/2020 Diabetes Screening 12/24/2020 12/25/2019, 0 12/25/2019, 05/14/2019, Additional history exists Lipid Screening 12/24/2022 12/25/2019, 05/14/2019 CT Colonography 2023 Colonoscopy 2023 Colorectal Cancer Screening 2023 FIT/gFOBT 2023 11/18/2014 Fecal DNA 2023 Flexible Sigmoidoscopy 2023 Vek-[id number]-51 ( season) 2024 021, 01/23/2021 Imm-Influenza (#1) 2024 06/21/2014, 06/21/2014 Alcohol and Drug Screen 10/21/2024 09/10/2018 Depression Annual Screen 10/21/2024 01/27/2019 Imm-DTaP/Tdap/Td (2 - Td or Tdap) 07/25/2026 016 Procedures Procedure Name Priority Date/Time Associated Diagnosis Comments COMPREHENSIVE METABOLIC PANEL Routine 12/25/2019 11:49 AM PST Prediabetes LIPID PANEL Routine 12/25/2019 11:49 AM PST Prediabetes FECAL GLOBIN BY IMMUNOCHEMISTRY (FIT) Routine 11/18/2014 5:35 PM PST Blood in stool from Last 3 Months or Most Recently Relevant to Health Maintenance Results * (ABNORMAL) LIPID PANEL (12/25/2019 11:49 AM PST) CHOLESTEROL, TOTAL 198 <200 mg/dL [facility] [place] HDL CHOLESTEROL 37(L) > OR = 40 mg/dL [facility] [place] TRIGLYCERIDES 301(H) <150 mg/dL [facility] [place] Comment: If a non-fasting specimen was collected, consider repeat triglyceride testing on a fasting specimen if clinically indicated. Carl et al. J. of Clin. Lipidol. 2015;9:129-169. LDL-CHOLESTEROL 118(H) 99 mg/dL (calc) [facility] [place] Comment: Reference range: <100 Desirable range <100 mg/dL for primary prevention; ?? <70 mg/dL for patients with CHD or diabetic patients with > or = 2 CHD risk factors. LDL-C is now calculated using the Magdiel calculation, which is a validated novel method providing better accuracy than the Friedewald equation in the estimation of LDL-C. Ruy BRIGHT et al. OBED. 2013;310(19): 8988-2633 (http://education.Timetric/faq/JZX712) CHOL/HDLC RATIO 5.4(H) <5.0 (calc) [facility] NON-HDL CHOLESTEROL 161(H) <130 mg/dL (calc) [facility] Comment: For patients with diabetes plus 1 major ASCVD risk factor, treating to a non-HDL-C goal of <100 mg/dL (LDL-C of <70 mg/dL) is considered a therapeutic option. Blood specimen (specimen) Blood / Unknown 12/25/2019 11:49 AM PST 12/25/2019 11:50 AM PST Narrative [facility] - 12/26/2019 3:08 AM PST FASTING:NO Naldo Ayala DO LAB - BLOOD DRAW Final Result [facility] [address] [facility] [place] [address], [facility] [address] [place] [address] * (ABNORMAL) COMPRE METAB PANEL (12/25/2019 11:49 AM PST) GLUCOSE 141(H) 65 - 139 mg/dL [facility] Comment: ?Non-fasting reference interval UREA NITROGEN (BUN) 21 7 - 25 mg/dL [facility] CREATININE 1.07 0.60 - 1.35 mg/dL [facility] EGFR NON-AFR. FINNISH 86 > OR = 60 mL/min/1 .73m2 [facility] EGFR 99 > OR = 60 mL/min/1 .73m2 [facility] BUN/CREATININE RATIO NOT APPLICABLE 6 - 22 [facility] SODIUM 138 135 - 146 mmol/L [facility] POTASSIUM 4.3 3.5 - 5.3 mmol/L [facility] CHLORIDE 101 98 - 110 mmol/L [facility] CARBON DIOXIDE 30 20 - 32 mmol/L [facility] CALCIUM 9.4 8.6 - 10.3 mg/dL [facility] PROTEIN, TOTAL 7.5 6.1 - 8.1 g/dL [facility] ALBUMIN 4.5 3.6 - 5.1 g/dL [facility] GLOBULIN 3.0 1.9 - 3.7 g/dL (calc) [facility] ALBUMIN/GLOBULI N RATIO 1.5 1.0 - 2.5 (calc) [facility] BILIRUBIN, TOTAL 0.8 0.2 - 1.2 mg/dL [facility] ALKALINE PHOSPHATASE 184(H) 36 - 130 U/L [facility] AST 31 10 - 40 U/L [facility] ALT 42 9 - 46 U/L [facility] Blood specimen (specimen) Blood / Unknown 12/25/2019 11:49 AM PST 12/25/2019 11:50 AM PST Narrative [facility] - 12/26/2019 3:08 AM PST FASTING:NO Naldo Ayala DO LAB - BLOOD DRAW Edited Result - Final [facility] [address] [place] [address], [facility] [place] [address] [place] [id number] * FECAL GLOBIN BY IMMUNOCHEMISTRY (FIT) (11/18/2014 5:35 PM PST) FECAL GLOBIN NOT DETECTED NOT DETECTED Q [facility] Stool specimen (specimen) Stool specimen / Unknown 11/18/2014 5:35 PM PST 11/18/2014 6:32 PM PST Narrative [facility] - 11/19/2014 5:02 AM PST COLLECTION METHOD:->CLEAN CATCH Performing Organization Information: [92] ??: ??[facility], [facility] [place] [address] Director: Jl Serrano Jr., MD David Brito NP LAB - NO BLOOD DRAW Final Result [facility] [address] [place] [address], from Last 3 Months or Most Recently Relevant to Health Maintenance Insurance [employer] [facility]
== END 2024-11-16 17:27 | disposition home or self-care (01) ==
PROVIDERS: PCP Internal Medicine; Visit Provider Internal Medicine
DX: I10 Essential (primary) hypertension (principal); F19.11 Other psychoactive substance abuse, in remission; E66.9 Obesity, unspecified; Z68.33 Body mass index [BMI] 33.0-33.9, adult; F33.9 Major depressive disorder, recurrent, unspecified; E78.2 Mixed hyperlipidemia; R73.01 Impaired fasting glucose; F43.10 Post-traumatic stress disorder, unspecified; F41.9 Anxiety disorder, unspecified

== ENCOUNTER → 2024-11-16 15:44 | Outpatient (BNVA) | payer OTHER, SELFPAY | PROVIDERS: PCP Internal Medicine; Visit Provider Internal Medicine | DX: I10 Essential (primary) hypertension (principal); E78.2 Mixed hyperlipidemia; R73.01 Impaired fasting glucose; F19.11 Other psychoactive substance abuse, in remission; F43.10 Post-traumatic stress disorder, unspecified; F41.9 Anxiety disorder, unspecified; F33.9 Major depressive disorder, recurrent, unspecified; E66.9 Obesity, unspecified; Z68.33 Body mass index [BMI] 33.0-33.9, adult; Z71.3 Dietary counseling and surveillance | CPT/HCPCS: 96127; 99212 ==

== ENCOUNTER 2025-02-01 10:33 | Outpatient (REF) | payer OTHER, SELFPAY ==
[2025-02-01 10:46] LABS: MANUAL DIFF FLAG NO
[2025-02-01 11:06] LABS: Basophils Percent Auto 0.5 % (0-2); Eosinophils Absolute Auto 0.1 X10*3/uL (0.0-0.4); Eosinophils Percent Auto 1.2 % (0-4); Hematocrit 47.2 % (42.0-52.0); Hemoglobin 16.3 g/dl (14.0-18.0); Imm Gran Abs Auto 0.02 X10*3/uL (0.00-0.03); Imm Gran Pct Auto 0.4 % (0.0-0.4); Lymphocytes Absolute Auto 2.1 X10*3/uL (1.2-4.9); Mean Corpuscular HGB Conc 34.5 g/dl (31.0-36.0); Mean Corpuscular Hemoglobin 30.2 pg (27.0-33.0); Mean Corpuscular Volume 87.6 fL (80.0-98.0); Mean Platelet Volume 10.1 fL (9.4-12.4); Monocytes Absolute Auto 0.4 X10*3/uL (0.1-1.2); Monocytes Percent Auto 6.5 % (2-11); Neutrophils Absolute Auto 3.2 x10*3/uL (2.0-8.3); Neutrophils Percent Auto 55.4 % (45-73); Platelet Count 204 X10*3/uL (160-400); Red Blood Count 5.39 X10*6/uL (4.60-5.80); Red Cell Distribution Width 11.5 % (11.0-16.0); White Blood Count 5.7 X10*3/uL (4.8-10.8)
[2025-02-01 11:10] LABS: Appearance Urine Clear; Color Urine Yellow; Glucose Urine UA >=1000 mg/dL (Negative); Leukocyte Esterase Urine Negative (Negative); Nitrite Urine Negative (Negative); Specific Gravity - Urine >= 1.030 (1.005-1.025); UMIC TRIGGER UACC YES; Urine Blood Negative (Negative); Urine Ketones Trace mg/dL (Negative); Urine Protein Negative (Neg-Trace)
[2025-02-01 11:13] LABS: Bacteria Urine None Seen (None Seen); Hyaline Casts Urine 0-2 /LPF (0-2); RBC Urine 0-2 /HPF (0-2); Squamous Epithelial Cell Urine 0-2 /HPF (0-2); WBC Urine 0-5 /HPF (0-5)
[2025-02-01 11:14] LABS: Estimated Average Glucose 338 mg/dL; Hemoglobin A1C 512.5718 umol/L; Hemoglobin A1c % 13.4 % (<6.0)
[2025-02-01 12:04] LABS: Alanine Aminotransferase 41 U/L (0-40); Albumin Level 4.2 g/dL (3.5-5.0); Alkaline Phosphatase 224 U/L (39-117); Anion Gap 13 (12-20); Aspartate Amino Transferase 27 U/L (5-37); Bilirubin Total 0.6 mg/dL (0.0-1.0); Blood Urea Nitrogen 13 mg/dL (9-16); Calcium 9.5 mg/dL (8.4-10.2); Carbon Dioxide 30 mmol/L (22-29); Chloride 100 mmol/L (96-108); Cholesterol 222 mg/dL (<200); Estimated Glomerular Filt Rate > 60; HDL Cholesterol 41 mg/dL (>40); LDL Cholesterol Calculated 110 mg/dL (<100); Potassium 4.6 mmol/L (3.3-5.1); Sodium 138 mmol/L (135-145); Total Protein 7.1 g/dL (6.5-8.0); Triglycerides 355 mg/dL (<150)
[2025-02-01 12:06] LABS: TSH reflex Free T4 0.52 uIU/mL (0.32-4.0); Vitamin D 25-OH Total 32.4 ng/mL (>30)
--- OUTSIDE RECORDS SUMMARY | 2025-02-01 12:08 | XMS_ITS | Clinical Summary ---
Author Organization [facility] Address [address] [place] [address] Care Team Providers Care Assistant Clinical Nurse Manager Name Role Phone Unavailable Primary Care Provider [...] sulfate 90 mcg/actuation inhalerIndication s:Cough variant asthma ([facility]HS-HCC) Inhale 2 Puffs into the lungs every 4 (four) hours as needed for shortness of breath or wheezing 1 Each 1 Active inhalational spacing deviceIndications :Cough variant asthma ([facility]HS-HCC) To be used with albuterol as prescribed [...] reduce cholesterol. 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 Anxiety 08/15/2018 Hypertension 08/15/2018 Acute recurrent pansinusitis 08/15/2018 Opioid dependence with opioid-induced disorder ( [facility]) 08/15/2018 Allergic rhinitis 08/15/2018 Lumbar disc herniation with radiculopathy 2017 Back spasm 08/15/2018 Segmental dysfunction of thoracic region 017 Overview (04/25/2017): [id number] Chronic constipation 12/25/2016 Overview (04/25/2017): [id number] Resolved Problems Problem Noted Date Diagnosed Date Resolved Date Acute pain of left shoulder 02/08/2017 01/04/2018 Overview (04/25/2017): [id number] Segmental dysfunction of lumbar region 02/08/2017 12/04/2018 Overview (04/25/2017): [id number] Cervicalgia 02/02/2017 01/04/2018 Overview (04/25/2017): [id number] Pain, arm, right 02/02/2017 01/04/2018 Overview (04/25/2017): [id number] Sunburn due to tanning bed 01/07/2017 0 01/04/2018 Overview (04/25/2017): [id number] Immunizations Immunization Administration Dates Next Due INFLUENZA, SEASONAL, INJECTABLE [...] Health Maintenance Due Date Last Done Comments Anxiety Screening 1978 Hepatitis C Screening 1978 Tobacco Screening 1978 HIV Screening 1993 Imm-Hepatitis B (1 of 3 - 19 + 3-dose series) 1997 Imm-Pneumococcal (1 of 2 - PCV) 1997 Tobacco Cessation Counseling (#1) 08/31/2020 Diabetes Screening 12/24/2020 12/25/2019, 0 12/25/2019, 05/14/2019, Additional history exists Lipid Screening 12/24/2022 12/25/2019, 05/14/2019 CT Colonography 2023 Colonoscopy 2023 Colorectal Cancer Screening 2023 FIT/gFOBT 2023 11/18/2014 Fecal DNA 2023 Flexible Sigmoidoscopy 2023 Msw-[id number]-12 ( season) 2024 021, 01/23/2021 Imm-Influenza (#1) [...] CHOLESTEROL, TOTAL 198 <200 mg/dL [facility] HDL CHOLESTEROL 37(L) > OR = 40 mg/dL [facility] TRIGLYCERIDES 301(H) <150 mg/dL [facility] Comment: If a non-fasting specimen was collected, consider repeat triglyceride testing on a fasting specimen if clinically indicated. Carl et al. J. of Clin. Lipidol. 2015;9:129-169. LDL-CHOLESTEROL 118(H) 99 mg/dL (calc) [facility] Comment: Reference range: <100 Desirable range <100 mg/dL for primary prevention; ?? <70 mg/dL for patients with CHD or diabetic patients with > or = 2 CHD risk factors. LDL-C is now calculated using the Magdiel calculation, which is a validated novel method providing better accuracy than the Friedewald equation in the estimation of LDL-C. Ruy BRIGHT et al. OBED. 2013;310(19): 1235-1316 (http://education.CNZZ/faq/LHD945) CHOL/HDLC RATIO 5.4(H) <5.0 (calc) [facility] [...] LAB - BLOOD DRAW Final Result [facility] [address] [facility] [place] [address], [facility] [address] [place] [address] * (ABNORMAL) COMPRE METAB PANEL (12/25/2019 11:49 AM PST) GLUCOSE 141(H) 65 - 139 mg/dL [facility] Comment: ?Non-fasting reference interval UREA NITROGEN (BUN) 21 7 - 25 mg/dL [facility] CREATININE 1.07 0.60 - 1.35 mg/dL [facility] EGFR NON-AFR. [place] 86 > OR = 60 mL/min/1 .73m2 [...] [facility] - 12/26/2019 3:08 AM PST FASTING:NO us Naldo Ayala DO LAB - BLOOD DRAW Edited Result - Final [facility] [address] [place] [address], [facility] [address] [place] [phone] * FECAL GLOBIN BY IMMUNOCHEMISTRY (FIT) (11/18/2014 5:35 PM PST) FECAL GLOBIN NOT DETECTED NOT DETECTED Q [facility] Stool specimen (specimen) Stool specimen / Unknown 11/18/2014 5:35 PM PST 11/18/2014 6:32 PM PST Narrative [facility] - 11/19/2014 5:02 AM PST COLLECTION METHOD:->CLEAN CATCH Performing Organization Information: [92] ??: ??[facility], [address] [place] [id number] Director: Jl Serrano Jr., MD us David Brito NP LAB - NO BLOOD DRAW Final Result [facility] [address] [facility] [place] [address], [place] [phone] from Last 3 Months or Most Recently Relevant to Health Maintenance Insurance [employer] [facility]
[2025-02-01 12:21] LABS: Glucose Fasting 355 mg/dL (60-99)
== END 2025-02-01 10:34 | disposition home or self-care (01) ==
LOC: HO.LAB 10:33
PROVIDERS: PCP Internal Medicine; Visit Provider Internal Medicine
DX: Z00.00 Encounter for general adult medical examination without abnormal findings (principal); D64.9 Anemia, unspecified; E78.00 Pure hypercholesterolemia, unspecified; R73.01 Impaired fasting glucose; E55.9 Vitamin D deficiency, unspecified
CPT/HCPCS: 36415; 80053; 80061; 81001; 82306; 83036; 84443; 85025

== ENCOUNTER 2025-03-22 16:05 | Outpatient (AMB) | payer OTHER, SELFPAY ==
[2025-03-22 16:23] VITALS: BP 126/82; PULSE 88; O2SAT 92; BMI 32.5
--- NOTE | 2025-03-22 16:23 | A.OFFPC_ITS ---
Vital Signs 03/22/25 16:23 Height 5 ft 11 in Weight 233 lb BMI 32.5 BP 126/82 Blood Pressure Location Lt brachial Position Sitting Pulse 88 Pulse Source Pulse Oximeter Pulse Oximetry (%) 92 Oxygen Delivery Method Room Air Intake Visit Reasons: annual exam/DM Make Up Editor Required: No Accompanied by: Self / Same As Patient Allergies ibuprofen Allergy (Severe, Verified 03/22/25 16:41) Abdominal Pain Medication List - Last Reconciled 03/22/25 by Toni Duke MD diazepam 10 mg PO BID PRN escitalopram oxalate 20 mg PO DAILY hydroxyzine HCl 20 mg PO BID lisinopril 10 mg PO DAILY 90 days methadone 54 mg PO DAILY Tobacco use date assessed: 03/22/25 Dental Screening Dental Screen Date: 03/22/25 Did you have a dental visit in the last 12 months?: No Did you have a dental problem in the last 6 months where you did not have access to dental care?: No Was dental information given to patient?: Patient has dentist HPI annual exam/DM HPI Details Patient comes in today for his annual physical examination States that he feels okay He denies any headaches or dizziness Denies any chest pains, no SOB No nausea/vomiting, no abdominal pain No change in bowel habits noted He denies any acute urinary symptoms Patient adds that he is interested in getting a vasectomy and would like to get a referral to see urology for this He had his follow up labs done a few weeks ago - to discuss his results He was referred for his screening colonoscopy last year but he has not yet had his colonoscopy done [facility] Medical History (Updated 03/23/25 @ 05:01 by Toni Duke MD) Elevated LFTs Diabetes mellitus Mixed hyperlipidemia History of substance abuse Essential hypertension Obesity (BMI 30-39.9) Depression Post traumatic stress disorder (PTSD) Anxiety Surgical History Hx of colonoscopy Family History Father Diabetes mellitus Hyperlipidemia CAD (coronary artery disease) Mother DVT (deep venous thrombosis) Depression Sister Depression Social History Housing: House Patient Tobacco Use Status: Former Tobacco user e-Cigarette/Vaping Use: Never Used service: No Current occupational status: employed and unemployed Cognitive needs: No Hearing needs: No Vision needs: No Questionnaire PHQ-9 Over the last 2 weeks, how often have you been bothered by any of the following problems? 1. Little interest or pleasure in doing things: not at all 2. Feeling down, depressed, or hopeless: not at all 3. Trouble falling or staying asleep, or sleeping too much: not at all 4. Feeling tired or having little energy: not at all 5. Poor appetite or overeating: not at all 6. Feeling bad about yourself - or that you are a failure or have let yourself or your family down: not at all 7. Trouble concentrating on things, such as reading the newspaper or watching television: not at all 8. Moving or speaking so slowly that other people could have noticed. Or the opposite - being so fidgety or restless that you have been moving around a lot more than usual: not at all 9. Thoughts that you would be better off or of hurting yourself in some way: not at all Total score: 0 Depression Screening Interpretation: Negative Depression Screening Done: Yes 53134 - PHQ-9 Billing: Yes Source: Developed by Drs. Titi Diaz, Ivonne Ramos, Marlon Turcios and colleagues, with an educational david from [employer]. Thrive Questionnaire Date Thrive assessed: 03/22/25 I am a: Patient What is your living situation today?: I have a steady place to live Within the past 12 months, did the food you bought not last and you didn't have the money to get more?: Never true Within the past 12 months, did you worry whether your food would run out before you got money to buy more?: Never true Do you have trouble paying for medicines?: No Do you have trouble getting transportation to medical appointments?: No Do you have trouble paying your heating and electricity bill?: No Do you have trouble taking care of your child, family member or friend?: No Do you have trouble with day-to-day activities such as bathing, preparing meals, shopping, managing finances, etc.?: No Are you currently unemployed and looking for a job?: No Are you interested in more education?: I choose not to answer this question Please select the resources that you would like help with: None Currently or been in a relationship where the following occur: No concerns reported THRIVE Score: 0 AUDIT C Alcohol Use Questionnaire (AUDIT-C) 1. How often do you have a drink containing alcohol?: Never 3. How often do you have six or more drinks on one occasion?: Never Total Score: 0 Score Reviewed/Action Taken: Yes PRO-7 AMB Questionnaire PRO-7 Date PRO - 7 assessed: 03/22/25 Feeling nervous, anxious, or on edge: 1 = Several days Not being able to stop or control worryin = Not at all Worrying too much about different things: 0 = Not at all Trouble relaxin = Not at all Being so restless that it is hard to sit still: 0 = Not at all Becoming easily annoyed or irritable: 0 = Not at all Feeling afraid as if something awful might happen: 0 = Not at all Total PRO-7 score (0-4 normal; 5-9 mild; 10-14 moderate; 15-21 severe): 1 Source: Developed by Drs. Titi Diaz, Ivonne Ramos, Marlon Turcios and colleagues, with an educational david from [employer]. Review of Systems Const Denies chills, Denies fatigue, Denies fever(s), Denies headache(s), Denies malaise and Denies weakness Eyes Denies blurry vision, Denies change in vision, Denies irritation and Denies itchy eyes ENT Denies dysphagia, Denies dizziness, Denies otalgia, Denies headache(s), Denies nasal congestion, Denies neck pain, Denies odynophagia and Denies sore throat Card Denies rapid heart rate, Denies irregular heart rhythm, Denies palpitations and Denies dyspnea Resp Denies chest congestion, Denies cough, Denies dyspnea and Denies wheezing GI Denies abdominal pain, Denies bloating, Denies constipation, Denies dysphagia, Denies heartburn, Denies diarrhea, Denies nausea, Denies odynophagia and Denies vomiting Denies hematuria, Denies difficulty urinating, Denies dysuria, Reports urinary frequency (at times) and Denies urinary urgency Musc Denies back pain, Denies arthralgias, Denies joint swelling, Denies muscle weakness and Denies neck pain Skin/Breast Denies change in pigmentation, Denies lesions, Denies rash and Denies unusual bruising Neuro Denies dizziness, Denies headache(s), Denies paresthesias and Denies weakness Psych Denies anxiety and Denies depression Endo Denies fatigue and Denies palpitations Aller/Immun Denies itchy eyes and Denies wheezing Physical exam (Primary Care) Vital Signs: Last Vital Signs Pulse 88 03/22/25 16:23 BP 126/82 03/22/25 16:23 Pulse Ox 92 03/22/25 16:23 Oxygen Delivery Method Room Air 03/22/25 16:23 BMI result Body Mass Index 32.5 Tobacco/Smoking Status: Tobacco use Status Tobacco use date assessed 03/22/25 03/22/25 16:24 Patient Tobacco Use Status Former Tobacco user 03/22/25 16:24 e-Cigarette/Vaping Use Never Used 03/22/25 16:24 PHQ-9: PHQ-9 Score PHQ-9: Total score 0 03/22/25 16:44 Depression Screening Interpretation: Negative Thrive Assessment: Date of Thrive Assessment Date Thrive assessed 03/22/25 03/22/25 16:24 Currently or been in a relationship where the following occur: No concerns reported Const General: no acute distress, alert and awake Orientation/consciousness: patient oriented x3 HENMT Head: Yes normocephalic and Yes atraumatic Ears: external ears normal, TM's normal bilaterally and EAC's normal General nose exam: No nasal discharge present Face and sinus: Yes normal facial exam and Yes sinuses nontender Teeth and gingiva: dentition normal Throat: Yes posterior oropharynx normal and Yes tonsils normal (no TP congestion) Eyes Eyelids: Yes eyelids normal Conjunctivae: conjunctivae normal Pupils: Equal, round and reactive pupils present EOM: EOMs intact bilaterally Neck Neck: Yes no lymphadenopathy and Yes supple Thyroid: Thyroid normal Resp Auscultation: clear to auscultation bilaterally, no rales and no wheezes Cardio Rate: regular rate Rhythm: regular rhythm Heart sounds: no murmurs GI Palpation (GI): Soft to palpation, nontender and No hepatosplenomegaly present Auscultation: normal bowel sounds General: Yes no CVA tenderness Back/Spine/Pelvis Back: no CVA tenderness Thoracic/Lumbar Spine: thoracic and lumbar spine normal to inspection Skin Lesions: no lesions Rashes: no rashes Neuro General: patient oriented x3, moves all extremities, no focal motor deficits and CN's II-XI intact bilaterally Cranial nerves: Yes Equal, round and reactive pupils present Cognition (Neuro): normal cognition Gait exam (Neuro): Normal gait present Extrem General: Yes no clubbing, cyanosis or edema Results Reviewed Results Reviewed: Laboratory Tests 02/01/25 02/01/25 10:39 10:41 WBC 5.7 Hgb 16.3 Hct 47.2 Plt Count 204 Sodium 138 Potassium 4.6 Creatinine 1.03 Estimated GFR > 60 Fasting Glucose 355 H* Hemoglobin A1c % 13.4 H Calcium 9.5 AST 27 ALT 41 H Alkaline Phosphatase 224 H Triglycerides 355 H Cholesterol 222 H LDL Cholesterol, Calc 110 H HDL Cholesterol 41 25-OH Vitamin D Total 32.4 TSH 0.52 Ur Specific [place] >= 1.030 H Urine Protein Negative Urine Glucose (UA) >=1000 H Urine Blood Negative Urine Nitrite Negative Ur Leukocyte Esterase Negative Coding Level of Care Code Est Pt Prev Care 40-64y(08377) Diagnoses Annual physical exam Z00.00 Type 2 diabetes mellitus with hyperglycemia, without long-term current use of insulin E11.65 Diabetes mellitus type: type 2 Diabetes mellitus longterm insulin use: without adjunct faculty for medical terminology use Diabetes mellitus complication status: with hyperglycemia Mixed hyperlipidemia E78.2 Essential hypertension I10 Elevated LFTs R79.89 History of substance abuse F19.11 Post traumatic stress disorder (PTSD) F43.10 Anxiety F41.9 Episode of recurrent major depressive disorder, unspecified depression episode severity F33.9 Depression Type: major depressive disorder Major depression recurrence: recurrent Active/Remission status: currently active Major depression episode severity: unspecified Obesity (BMI 30-39.9) E66.9 Visit for vasectomy evaluation Z30.09 Colon cancer screening Z12.11 Additional Codes PHQ-9 - 02917 - PHQ-9 Billing: Yes ([id number]) Assessment & Plan Assessment & Plan (1) Annual physical exam: Code(s): Z00.00 - Encounter for general adult medical examination without abnormal findings Category: Medical Plan: Results of his labs done a few weeks ago reviewed and discussed with patient He was referred for his screening colonoscopy last year but he has not yet been scheduled for this (2) Diabetes mellitus: Code(s): E11.9 - Type 2 diabetes mellitus without complications Category: Medical Qualifiers: Diabetes mellitus type: type 2 Diabetes mellitus adjunct faculty for medical terminology insulin use: without adjunct faculty for medical terminology use Diabetes mellitus complication status: with hyperglycemia Qualified Code(s): E11.65 - Type 2 diabetes mellitus with hyperglycemia Plan: Have advised patient that with a HgbA1c of 13.4% on his recent labs, he is considered an uncontrolled diabetic and he should start addressing this issue immediately before complications set in - goal is a HgbA1c level of at least <7.0% Discussed with patient the necessary dietary and lifestyle changes that he has to make now that he is a diabetic, including making sure he does not skip his meals (to prevent mechanisms in the body from occurring that raises ones blood sugar levels) and to avoid also drinks including sodas and juices and to also avoid any artificial sweeteners as these can lead the body to look for other alternatives that are not necessarily healthy Have also emphasized to patient the importance of regular exercise and increased physical activity to help manage his diabetes better Patient states that he is going to be scheduling an appointment to see a commissioner of internal 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 work as this is included benefit with his current employment Will go ahead and start patient on Metformin ER 500 mg BID and Glipizide 5 mg QD Will recheck his FBS and HgbA1c in 3 months; will also check his C-peptide and PRO Ab in 3 months for further evaluation (3) Mixed hyperlipidemia: Code(s): E78.2 - Mixed hyperlipidemia Category: Medical Plan: Patient is advised that his serum triglyceride level is significantly elevated on his recent labs, likely in relation to his uncontrolled diabetes Reinforced low-cholesterol diet Will hold off on starting him on cholesterol-lowering medications at this time, especially with his elevated LFTs, but advised patient that if his cholesterol numbers do not improve even when his blood sugar is back under control, we will then likely need to start him on some medications for his cholesterol (4) Essential hypertension: Code(s): I10 - Essential (primary) hypertension Category: Medical Plan: Reinforced low sodium diet - goal is systolic BP of 120 mm or less Continue Lisinopril 10 mg QD Patient is reminded to continue monitoring his blood pressure regularly (5) Elevated LFTs: Code(s): R79.89 - Other specified abnormal findings of blood chemistry Category: Medical Plan: This is likely related to his weight but may also be partially due to his high cholesterol levels at this time Will recheck his LFTs in 3 months for follow up and if his LFTs do not improve significantly at his next follow up visit, may need to send him for abdominal US for further evaluation (6) History of substance abuse: Code(s): F19.11 - Other psychoactive substance abuse, in remission Category: Medical Plan: In remission He is currently on Methadone 54 mg QD through [facility] in [place] Follow up with the Methadone clinic as scheduled (7) Post traumatic stress disorder (PTSD): Code(s): F43.10 - Post-traumatic stress disorder, unspecified Category: Medical Plan: Continue Escitalopram 20 mg QD and Hydroxyzine 20 mg BID PRN He also used to be on Duloxetine 20 mg QD but this was weaned off a few months ago (8) Anxiety: Code(s): F41.9 - Anxiety disorder, unspecified Category: Medical Plan: Continue Diazepam 10 mg BID PRN, Hydroxyzine 20 mg BID PRN and Escitalopram 20 mg QD Follow up with psychiatry as scheduled (9) Depression: Code(s): F32.A - Depression, unspecified Category: Medical Qualifiers: Depression Type: major depressive disorder Major depression recurrence: recurrent Active/Remission status: currently active Major depression episode severity: unspecified Qualified Code(s): F33.9 - Major depressive disorder, recurrent, unspecified Plan: Continue Escitalopram 20 mg QD; he was weaned/taken off Quetiapine 25 mg Q HS and Duloxetine 20 mg QD a few months ago by psychiatry Follow up with psychiatry as scheduled (10) Obesity (BMI 30-39.9): Code(s): E66.9 - Obesity, unspecified Category: Medical Plan: Reinforced diet/exercise as tolerated/lose weight (11) Visit for vasectomy evaluation: Code(s): Z30.09 - Encounter for other general counseling and advice on contraception Category: Medical Plan: Per request, will refer patient to urology for consideration for vasectomy but have advised him that urology may want to wait until his diabetes improve before doing this (12) Colon cancer screening: Code(s): Z12.11 - Encounter for screening for malignant neoplasm of colon Category: Medical Plan: Will refer patient again to GI for his screening colonoscopy Plan Follow up in 3 months Orders: Orders Comprehensive [place]. Panel Fast 3 Months E78.00 - Pure hypercholesterolemia, unspecified Hemoglobin A1c 3 Months E11.9 - Type 2 diabetes mellitus without complications UA CC w/rflx Micro + Cult 3 Months R30.0 - Dysuria Complete Blood Count Auto Diff 3 Months D64.9 - Anemia, unspecified Lipid Panel 3 Months E78.00 - Pure hypercholesterolemia, unspecified TSH reflex Free T4 3 Months E78.00 - Pure hypercholesterolemia, unspecified Microalbumin, Random (w Creat) 3 Months E11.9 - Type 2 diabetes mellitus without complications C Peptide 3 Months E11.9 - Type 2 diabetes mellitus without complications Glutamic acid decarboxylase Ab 3 Months E11.9 - Type 2 diabetes mellitus without complications Referrals Urology Referral Z30.09 - Encounter for other general counseling and advice on contraception Gastroenterology Referral Z12.11 - Encounter for screening for malignant neoplasm of colon Medications: New metformin ER 500 mg PO BID 30 days 60 tabs 3RF glipizide 5 mg PO DAILY 30 days 30 tabs 3RF
--- OUTSIDE RECORDS SUMMARY | 2025-03-22 17:03 | XMS_ITS | Clinical Summary ---
Author Organization [facility] Address [address] [place] [address] Care Team Providers Care Biosolids Management Technician Name Role Phone Unavailable Primary Care Provider [...] reduce cholesterol. The 10-year ASCVD risk score ([place] DC Jr., et al., 2013) is: 5.8% [...] hemorr annamarie 01/27/2019 Methadone maintenance therapy patient ([facility]) 12/04/2018 Anxiety 08/15/2018 Hypertension 08/15/2018 Acute recurrent pansinusitis 08/15/2018 Opioid dependence with opioid-induced disorder ( [facility]) 08/15/2018 Allergic rhinitis 08/15/2018 Lumbar disc herniation with radiculopathy 2017 Back spasm 08/15/2018 Segmental dysfunction of thoracic region 017 Overview (04/25/2017): [id number] Chronic constipation 12/25/2016 Overview (04/25/2017): [id number] Resolved Problems Problem Noted Date Diagnosed Date Resolved Date Acute pain of left shoulder 02/08/2017 01/04/2018 Overview (04/25/2017): [id number] Segmental dysfunction of lumbar region 02/08/2017 12/04/2018 Overview (04/25/2017): [id number] Cervicalgia 02/02/2017 01/04/2018 Overview (04/25/2017): [id number] Pain, arm, right 02/02/2017 01/04/2018 Overview (04/25/2017): [id number] Sunburn due to tanning bed 01/07/2017 0 01/04/2018 Overview (04/25/2017): [id number] Immunizations Immunization Administration Dates Next Due INFLUENZA, [...] 11/18/2014 Fecal DNA 2023 Flexible Sigmoidoscopy 2023 Ask-[id number] ( season) 2024 021, 01/23/2021 Imm-Influenza (#1) [...] Health Maintenance Results * (ABNORMAL) LIPID PANEL ([id number]) (12/25/2019 11:49 AM PST) CHOLESTEROL, TOTAL 198 <200 mg/dL [facility] HDL CHOLESTEROL 37(L) > OR = 40 mg/dL [facility] TRIGLYCERIDES 301(H) <150 mg/dL [facility] Comment: If a non-fasting specimen was collected, consider repeat triglyceride testing on a fasting specimen if clinically indicated. Carl et al. J. of Clin. Lipidol. 2015;9:129-169. LDL-CHOLESTEROL 118(H) 99 mg/dL (calc) [facility] Comment: Reference range: <100 Desirable range <100 mg/dL for primary prevention; ?? <70 mg/dL for patients with CHD or diabetic patients with > or = 2 CHD risk factors. LDL-C is now calculated using the Magdiel calculation, which is a validated novel method providing better accuracy than the Friedewald equation in the estimation of LDL-C. Ruy BRIGHT et al. OBED. 2013;310(19): 1241-5183 (http://education.Compology.NuPathe/faq/PYW052) CHOL/HDLC RATIO 5.4(H) <5.0 (calc) [facility] [...] DRAW Final Result [facility] [address] [facility] [place] [address], [facility] [address] [place] [address] * (ABNORMAL) COMPREHENSIVE METABOLIC PANEL ([id number]) (12/25/2019 11:49 AM PST) GLUCOSE 141(H) 65 - 139 mg/dL [facility] Comment: ?Non-fasting reference interval UREA NITROGEN (BUN) 21 7 - 25 mg/dL [facility] CREATININE 1.07 0.60 - 1.35 mg/dL [facility] EGFR NON-AFR. [place] 86 > OR = 60 mL/min/1 .73m2 [...] Result - Final [facility] [address] [place] [address], [facility] [address] [place] [id number] * Fecal Globin by Immunochemistry (FIT) - [id number] (11/18/2014 5:35 PM PST) FECAL GLOBIN NOT DETECTED NOT DETECTED Q [facility] Stool specimen (specimen) Stool specimen / Unknown 11/18/2014 5:35 PM PST 11/18/2014 6:32 PM PST Narrative [facility] - 11/19/2014 5:02 AM PST COLLECTION METHOD:->CLEAN CATCH Performing Organization Information: [92] ??: ??[facility], [address] [place] [id number] Director: Jl Serrano Jr., MD David Brito NP LAB BODY FLUIDS AND STOOLS AMBUL ATORY Final Result [facility] [address] [place] [address], [place] [phone] from Last 3 Months or Most Recently Relevant to Health Maintenance Insurance ANTH MANAGED CARE [facility]
== END 2025-03-22 17:07 | disposition home or self-care (01) ==
LOC: HO.HMCH 16:06
PROVIDERS: PCP Internal Medicine; Visit Provider Internal Medicine
DX: Z00.00 Encounter for general adult medical examination without abnormal findings (principal); E11.65 Type 2 diabetes mellitus with hyperglycemia; E78.2 Mixed hyperlipidemia; I10 Essential (primary) hypertension; R79.89 Other specified abnormal findings of blood chemistry; F19.11 Other psychoactive substance abuse, in remission; F43.10 Post-traumatic stress disorder, unspecified; F41.9 Anxiety disorder, unspecified; F33.9 Major depressive disorder, recurrent, unspecified; E66.9 Obesity, unspecified; Z30.09 Encounter for other general counseling and advice on contraception; Z12.11 Encounter for screening for malignant neoplasm of colon

== ENCOUNTER → 2025-03-22 16:05 | Outpatient (BNVA) | payer OTHER, SELFPAY | PROVIDERS: PCP Internal Medicine; Visit Provider Internal Medicine | DX: Z00.00 Encounter for general adult medical examination without abnormal findings (principal); E11.65 Type 2 diabetes mellitus with hyperglycemia; E78.2 Mixed hyperlipidemia; I10 Essential (primary) hypertension; R79.89 Other specified abnormal findings of blood chemistry; F19.11 Other psychoactive substance abuse, in remission; F43.10 Post-traumatic stress disorder, unspecified; F41.9 Anxiety disorder, unspecified; F33.9 Major depressive disorder, recurrent, unspecified; E66.9 Obesity, unspecified; Z68.32 Body mass index [BMI] 32.0-32.9, adult | CPT/HCPCS: 96127; 99396 ==

== ENCOUNTER 2025-06-07 12:48 | Outpatient (AMB) | payer OTHER, SELFPAY ==
--- NOTE | 2025-06-07 12:53 | A.OFFVIS_ITS ---
Intake Visit Reasons: vasectomy consult Intake Note: PT PRESENTS FOR: VASECTOMY CONSULT UROLOGY MEDICATIONS: NONE BLOOD THINNERS: NONE [place] Hardware Installer Required: No Accompanied by: Self / Same As Patient Allergies ibuprofen Allergy (Severe, Verified 06/07/25 13:38) Abdominal Pain Medication List - Last Reconciled 06/07/25 by REDDY Sierra- blood sugar diagnostic (FreeStyle Lite Strips) As directed- TID blood-glucose meter (FreeStyle Lite Meter kit) As directed TID diazepam 10 mg PO BID PRN empagliflozin (Jardiance) 25 mg PO DAILY escitalopram oxalate 20 mg PO DAILY glipizide 5 mg PO DAILY 30 days hydroxyzine HCl 20 mg PO BID lancets (FreeStyle Lancets) As directed- TID lisinopril 10 mg PO DAILY 90 days methadone 54 mg PO DAILY HPI Comments Details: Is a very pleasant 44-year-old male patient of Dr. Duke. He has a past medical history of diabetes, hyperlipidemia, substance abuse, hypertension, obesity, depression, PTSD, and anxiety. He presents to the office today for - vasectomy evaluation Vasectomy evaluation The patient presents for vasectomy consultation.? 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 Patient education has been provided via AUA video, via printed information, risks of failure, recovery time, bruising and potential pain syndrome have been stressed Discussion today focused on the presence of vasectomy and the risks, benefits and alternatives that are available. Vasectomy as intended as a permanent form of control. Printed information and literature was provided to the patient. Overall there is a one in 2500 failure rate. This can occur at any time after vasectomy. Risks were discussed highlighting hematoma, spermatocele, epididymal congestion, development of sperm antibodies, and development of chronic pain estimated between 1-5%. The procedure was reviewed in detail. Anatomical diagrams of the male genitalia were used to explain the location of the vas deferens. The vas deferens will be transected, the proximal end will be cauterized, a metal clip would be applied to separate the 2 vas deferens ends. It was explained the procedure will be done in the office and takes approximately 10-15 minutes. Less common problems that arise with vasectomy include hematoma, bleeding, allergic reaction to anesthetic, epididymal infection, epididymal congestion, scrotal discomfort, spermatic leak, spermatic granuloma and the possibility of antisperm antibodies. He understands these risks and wishes to proceed. Consent was signed at the office today. He also understands that it takes 12 weeks for sperm to fully clear the system. He will need to provide a semen sample at 12 weeks and if this is not clear a 2nd sample at 16 weeks. Medical clearance to stop using protection will only be provided if he satisfies published criteria for sperm clearance. [facility] Medical History (Updated 06/07/25 @ 13:19 by KRUNAL Sierra) Elevated LFTs Diabetes mellitus Mixed hyperlipidemia History of substance abuse Essential hypertension Obesity (BMI 30-39.9) Depression Post traumatic stress disorder (PTSD) Anxiety Surgical History Hx of colonoscopy Family History Father Diabetes mellitus Hyperlipidemia CAD (coronary artery disease) Mother DVT (deep venous thrombosis) Depression Sister Depression Social History Housing: House Patient Tobacco Use Status: Former Tobacco user e-Cigarette/Vaping Use: Never Used service: No Current occupational status: employed and unemployed Cognitive needs: No Hearing needs: No Vision needs: No Review of Systems Const All systems reviewed & are unremarkable except as noted in HPI and below Physical Exam Const General: cooperative, comfortable, no acute distress, well developed, alert and awake Orientation/consciousness: patient oriented x3 HEENT Head: Yes normal to inspection, Yes normocephalic and Yes atraumatic Ears: hearing grossly normal bilaterally Eyes General: appearance normal, both eyes and all related structures Neck Neck: Yes normal visual inspection and Yes trachea midline Chest Chest palpation & inspection: normal inspection of the chest Resp Effort & Inspection: normal respiratory effort and able to speak in complete sentences Cardio Rate: regular rate GI Inspection: Yes normal to inspection General: Yes no CVA tenderness Meatus: meatus normal Scrotum: scrotum normal Testes: Testes normal Back/Spine/Pelvis Back: no CVA tenderness Skin General skin exam: no rashes or lesions noted Neuro General: patient oriented x3 Extrem General: Yes normal to inspection Psych Appearance: grossly normal and well kempt Mental Status: mental status grossly normal Speech and movement: Normal speech and movement present and Clear speech present Affect: normal affect Attitude: cooperative Thought process: Normal thought process present Thought content: Normal thought content present Assessment & Plan Assessment & Plan (1) Visit for vasectomy evaluation: Code(s): Z30.09 - Encounter for other general counseling and advice on contraception Category: Medical (2) Anxiety about health: Code(s): R45.89 - Other symptoms and signs involving emotional state Category: Medical Plan Vasectomy was discussed in detail; risks and benefits; as noted above. All questions were answered. We discussed semen analysis in office verses fellows kit; information provided. Consent obtain. Prescriptions provided; we discussed importance of bringing medication to office day of procedure. Will schedule for vasectomy as discussed. Follow-up per doctor's orders; or sooner with any issues, concerns, and or questions. Medications: New tramadol Please bring medication to office day of procedure 50 mg PO Q8H PRN 9 tabs 0RF pain 3 days Patient Instructions: The patient had an opportunity to ask questions regarding the treatment plan. All questions were answered. Physical exam, labs, and imaging were discussed and reviewed in detail. As well as risks, benefits, and discussion of treatment choices. No major barriers to understanding were identified. The patient expressed understanding and agreement with the above treatment plan. The patient was made aware they should contact our office by phone for worsening of their current condition, the appearance of new symptoms, or with any questions or concerns. Compliance is encouraged with any medications and follow up testing that is ordered. It is a privilege to be allowed the opportunity to participate in? your urological care.? Again, if you have any questions or concerns If you have any questions or concerns please do not hesitate to contact me. The office is [phone]. This note is constructed using voice recognition software. While every effort has been made to ensure accuracy soil scientist errors may have been included. Yours sincerely, KRUNAL Sierra Coding Level of Care Code New Pt Level 4 (03164) Diagnoses Visit for vasectomy evaluation Z30.09 Anxiety about health R45.89
--- OUTSIDE RECORDS SUMMARY | 2025-06-07 13:41 | XMS_ITS | Clinical Summary ---
Author Organization [facility] Address [address] [place] [address] Care Team Providers Care Clearance Diver Name Role Phone Unavailable Primary Care Provider [...] reduce cholesterol. The 10-year ASCVD risk score (Bruneau DC Jr., et al., 2013) is: 5.8% [...] hemorr annamarie 01/27/2019 Methadone maintenance therapy patient ([facility]) 12/04/2018 Anxiety 08/15/2018 Hypertension 08/15/2018 Acute recurrent pansinusitis 08/15/2018 Opioid dependence with opioi d-induced disorder ([facility]) 08/15/2018 Allergic rhinitis 08/15/2018 Lumbar disc herniation with radiculopathy 2017 Back spasm 08/15/2018 Segmental dysfunction of thoracic region 017 Overview (04/25/2017): [id number] Chronic constipation 12/25/2016 Overview (04/25/2017): [id number] Resolved Problems Problem Noted Date Diagnosed Date Resolved Date Acute pain of left shoulder 02/08/2017 01/04/2018 Overview (04/25/2017): [id number] Segmental dysfunction of lumbar region 02/08/2017 12/04/2018 Overview (04/25/2017): [id number] Cervicalgia 02/02/2017 01/04/2018 Overview (04/25/2017): [id number] Pain, arm, right 02/02/2017 01/04/2018 Overview (04/25/2017): [id number] Sunburn due to tanning bed 01/07/2017 0 01/04/2018 Overview (04/25/2017): [id number] Immunizations Immunization Administration Dates Next Due INFLUENZA, [...] 91 06/23/2021 10:53 AM PDT Temperature 36.9 C (98.4 F) 06/23/2021 10:53 AM PDT Respiratory Rate 18 06/23/2021 10:53 AM PDT [...] 11/18/2014 Fecal DNA 2023 Flexible Sigmoidoscopy 2023 [id number] ( season) 2024 021, 01/23/2021 Alcohol and Drug Screen 10/21/2024 09/10/2018 Depression Annual Screen 10/21/2024 01/27/2019 Imm-Influenza (#1) 2025 06/21/2014, 06/21/2014 Imm-DTaP/Tdap/Td (2 - Td or Tdap) 07/25/2026 016 Procedures Procedure Name Priority Date/Time Associated Diagnosis Comments COMPREHENSIVE METABOLIC PANEL Routine 12/25/2019 11:49 AM PST Prediabetes LIPID PANEL Routine 12/25/2019 11:49 AM PST Prediabetes FECAL GLOBIN BY IMMUNOCHEMISTRY (FIT) Routine 11/18/2014 5:35 PM PST Blood in stool from Last 3 Months or Most Recently Relevant to Health Maintenance Results * (ABNORMAL) LIPID PANEL ([id number]) (12/25/2019 11:49 AM PST) CHOLESTEROL, TOTAL 198 <200 mg/dL [facility] HDL CHOLESTEROL 37(L) > OR = 40 mg/dL [facility] TRIGLYCERIDES 301(H) <150 mg/dL [facility] Comment: If a non-fasting specimen was collected, consider repeat triglyceride testing on a fasting specimen if clinically indicated. Carl et al. J. of Clin. Lipidol. 2015;9:129-169. LDL-CHOLESTEROL 118(H) 99 mg/dL (calc) [facility] Comment: Reference range: <100 Desirable range <100 mg/dL for primary prevention; <70 mg/dL for patients with CHD or diabetic patients with > or = 2 CHD risk factors. LDL-C is now calculated using the Magdiel calculation, which is a validated novel method providing better accuracy than the Friedewald equation in the estimation of LDL-C. Ruy SS et al. OBED. 2013;310(19): 5237-0269 (http://education.BravoSolution.Wordy/faq/KUB938) CHOL/HDLC RATIO 5.4(H) <5.0 (calc) [facility] [...] DRAW Final Result [facility] [address] [place] [address], [facility] [address] [place] [address] * (ABNORMAL) COMPREHENSIVE METABOLIC PANEL ([id number]) (12/25/2019 11:49 AM PST) GLUCOSE 141(H) 65 - 139 mg/dL [facility] Comment: Non-fasting reference interval UREA NITROGEN (BUN) 21 7 - 25 mg/dL [facility] CREATININE 1.07 0.60 - 1.35 mg/dL [facility] EGFR NON-AFR. TONGAN 86 > OR = 60 mL/min/1 .73m2 [...] Result - Final [facility] [address] [place] [address], [facility] [address] [place] [id number] * Fecal Globin by Immunochemistry (FIT) - [id number] (11/18/2014 5:35 PM PST) FECAL GLOBIN NOT DETECTED NOT DETECTED Q [facility] Stool specimen (specimen) Stool specimen / Unknown 11/18/2014 5:35 PM PST 11/18/2014 6:32 PM PST Narrative [facility] - 11/19/2014 5:02 AM PST COLLECTION METHOD:->CLEAN CATCH Performing Organization Information: [92] : [facility], [address] [place] [address] Director: Jl Serrano Jr., MD us [address] [facility] BODY FLUIDS AND STOOLS AMBUL ATORY Final Result [facility] [place] [address], [place] [phone] from Last 3 Months or Most Recently Relevant to Health Maintenance Insurance [place] [address] [facility]
== END 2025-06-07 13:41 | disposition home or self-care (01) ==
LOC: HO.HUSH 12:49
PROVIDERS: PCP Internal Medicine; Visit Provider Nurse Practitioner Family
DX: Z30.09 Encounter for other general counseling and advice on contraception (principal); R45.89 Other symptoms and signs involving emotional state
CPT/HCPCS: 99204

== ENCOUNTER → 2025-06-07 12:48 | Outpatient (BNVA) | payer OTHER, SELFPAY | PROVIDERS: PCP Internal Medicine; Visit Provider Nurse Practitioner Family | DX: Z30.09 Encounter for other general counseling and advice on contraception (principal); R45.89 Other symptoms and signs involving emotional state | CPT/HCPCS: 99202 ==

== ENCOUNTER 2025-08-11 14:28 | Outpatient (AMB) | payer OTHER, SELFPAY ==
--- NOTE | 2025-08-11 14:47 | MHC.OFFVIS ---
Intake Visit Reasons: Vasectomy Intake Note: PT PRESENTS FOR: VASECTOMY UROLOGY MEDICATIONS: NONE BLOOD THINNERS: NONE Divisional Human Resources Director Required: No Accompanied by: Self / Same As Patient Allergies ibuprofen Allergy (Severe, Verified 08/11/25 14:47) Abdominal Pain HPI Comments Details: Julio very pleasant 44-year-old male patient of Dr. Duke. He has a past medical history of diabetes, hyperlipidemia, substance abuse, hypertension, obesity, depression, PTSD, and anxiety. He presents to the office today for - vasectomy procedure Vasectomy procedure The patient presents for vasectomy procedure.? 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 [employer] Medical History (Updated 06/07/25 @ 13:19 by Angella Fischer [facility]) Elevated LFTs Diabetes mellitus Mixed hyperlipidemia History of substance abuse Essential hypertension Obesity (BMI 30-39.9) Depression Post traumatic stress disorder (PTSD) Anxiety Surgical History Hx of colonoscopy Family History Father Diabetes mellitus Hyperlipidemia CAD (coronary artery disease) Mother DVT (deep venous thrombosis) Depression Sister Depression Social History Housing: House Patient Tobacco Use Status: Former Tobacco user e-Cigarette/Vaping Use: Never Used service: No Current occupational status: employed and unemployed Cognitive needs: No Hearing needs: No Vision needs: No Review of Systems Const Denies chills and Denies fever(s) Card Reports no additional complaints and Denies syncope Resp Denies cough GI Denies abdominal pain and Denies heartburn Reports as per HPI and Denies change in libido Neuro Denies syncope Psych Denies change in libido Endo Denies change in libido Physical Exam Const General: cooperative, healthy appearing, comfortable and no acute distress Orientation/consciousness: patient oriented x3 HEENT Face and sinus: Yes normal facial exam Mouth: moist mucous membranes Neck Neck: Yes normal visual inspection, Yes full ROM and Yes trachea midline Chest Chest palpation & inspection: normal inspection of the chest Resp Effort & Inspection: normal respiratory effort, able to speak in complete sentences and no respiratory distress GI Inspection: Yes normal to inspection Back/Spine/Pelvis Cervical Spine: normal cervical lordosis Thoracic/Lumbar Spine: thoracic and lumbar spine normal to inspection Skin General skin exam: no rashes or lesions noted Neuro General: patient oriented x3, gait normal, tone normal and moves all extremities Extrem General: Yes normal to inspection and Yes capillary refill normal Office Procedures Vasectomy Details: Preoperative diagnosis: Anxiety regarding Postoperative diagnosis: Anxiety regarding unplanned Procedure: Bilateral vasectomy Informed consent had been completed. Preoperative and postoperative instructions were provided to the patient. The patient has transportation home identified at the completion of the procedure. Anti-anxiolytic prescription medication had been taken after consent verification and all questions answered. A limited amount of pain medication was also provided. The penis was elevated using a rubber band that was attached to the patient's shirt. Both vasa were palpated through the skin using a 3 finger technique and the penoscrotal junction was prepped with Betadine. After Betadine application the left vas was elevated using a 3 finger grasping technique. 1% lidocaine was used to create a subdermal bubble. Further anesthetic was then advanced using the 25-gauge needle along the vasa in a proximal fashion. Approximately 2 minutes were allowed to for local anesthetic uptake. Using the sharp spreading instrument the scrotal skin was spread longitudinally in line with the vasa until the subdermal layer had been divided. The vasa was then elevated from the scrotum using a ring clamp. Care was taken to elevate the superior portion of the vasa by rotating the ring clamp in a caudad direction. The battery powered cautery was used to divide the vasal sheath in a longitudinal direction on the exposed vasa and to strip the vasal sheath from the vasa. The sharp spreading instrument was used to further expose the vas within the vasal sheath. A 2nd narrower ring clamp was placed on the exposed vas and used to lift the vas from the vasal sheath. The cautery was used to divide vasal attachments and allow full exposure of a small loop of vasa. The sharp spreading instrument was then used to create a tunnel under the vasa and spread to allow the blood vessels of the vasa to retract from the vasa. A mosquito clamp was placed on the proximal portion of the vas. The battery-powered cautery was used to make a partial division in the proximal vas and then inserted in order to cauterize the proximal end of the vas. This was then cut and allowed to retract into the vasal sheath. The mosquito was then used to twist the vasa 180 degrees creating a fascial interposition as the proximal portion of the vas retracted in the vasal sheath. Using a 4-0 chromic suture the fascial interposition was sutured closed. The distal portion of the vas was then cut in order to obtain a segment of vasa. An open distal vas is preferred for minimizing postprocedure pain. The vasa were allowed to retract back into the scrotum. A small snap was then used to approximate the skin edges and allow hemostasis without placement of a suture. A similar procedure was repeated on the right side. He tolerated the procedure well. Triple antibiotic was applied. A gauze was applied. An ice pack was applied to assist with minimizing swelling. Postoperative instructions were confirmed. He understands the need to continue to use control methods. A semen sample should be brought for inspection under the microscope in 10-12 weeks. CPT 46461 Vasectomy performed by: Hank Courtney Time out checklist: patient, procedure, site marked/identified, positioning of patient, supplies available, allergies confirmed and team agrees on procedure Preoperative sedation: Yes Anesthetic used: other Specimens: vas segments not sent to pathology 28860 - Vasectomy Office Meds lidocaine (PF) 10 mg/mL (1 %) injection solution Performing Provider: Hank Courtney MD [facility] Administered by: Hank Courtney MD on 08/11/25 15:29 Dose Route Admin Location Dispensed Lot Number Expiration Date [facility] Mud Mixer Operator 2 mL Infiltration 10 mL Total Dispensed Waste 10 mL 0 % Assessment & Plan Assessment & Plan (1) Anxiety about health: Code(s): R45.89 - Other symptoms and signs involving emotional state Category: Medical Plan Three-month follow-up Orders: Orders AMB Vasectomy Today R45.89 - Other symptoms and signs involving emotional state Testosterone, Free/Total 2 Months E11.65 - Type 2 diabetes mellitus with hyperglycemia Patient Instructions: This note is constructed using voice recognition software. While every effort has been made to ensure accuracy outside machinist supervisor errors may have been included. Imaging studies, laboratory and physical exam results were discussed and reviewed in detail. No major barriers to patient understanding were identified. An opportunity to ask questions regarding the treatment plan was provided. All questions were answered. The patient expressed understanding and agreement with the above treatment plan. The patient is aware they should contact our office by phone for worsening of their current condition or the appearance of new urologic symptoms. Compliance is encouraged with any medications and followup testing that is ordered. It is a privilege to participate in the urologic care of your patient. If you have any questions or concerns regarding treatment for the above conditions, or other urologic issues, please do not hesitate to contact me. The office telephone contact is [phone]. Sincerely, Dr Hank Courtney MD, [facility] - Urology Compassionate Specialist Care for the Genitourinary System Coding Level of Care Code Procedure Only Diagnoses Anxiety about health R45.89 CPT Codes Office Procedure - CPT: 35149 - Vasectomy ([id number])
== END 2025-08-11 15:24 | disposition home or self-care (01) ==
LOC: HO.HUSH 14:29
PROVIDERS: PCP Internal Medicine; Visit Provider Urology
DX: Z30.2 Encounter for sterilization (principal); R45.89 Other symptoms and signs involving emotional state
CPT/HCPCS: 55250

== ENCOUNTER → 2025-08-11 14:28 | Outpatient (BNVA) | payer OTHER, SELFPAY | PROVIDERS: PCP Internal Medicine; Visit Provider Urology | DX: Z30.2 Encounter for sterilization (principal); R45.89 Other symptoms and signs involving emotional state | CPT/HCPCS: 55250; J2003 ==